=== PATIENT | female | born 1985 | race Caucasian/White ===

== ENCOUNTER 2019-09-30 13:02 | Emergency (ER) | payer OTHER, SELFPAY ==
[2019-09-30 13:16] VITALS: BP 137/85; PULSE 86; RESP 18; TEMP 37; O2SAT 100
--- NOTE | 2019-09-30 13:23 | ED.URI ---
HPI - URI/Sore Throat General Chief Complaint: Upper Respiratory Infection Stated Complaint: ear pain/sore throat Time Seen by Provider: 09/30/19 13:23 Source: patient Mode of arrival: ambulatory Limitations: no limitations History of Present Illness HPI Narrative: Neelam Jones is a 33 yo female with PMH depression, ADD, who comes to express care with sore throat and right ear pain, enlarged tender anterior chain lymph node at base of trachea Related Data Home Medications Medication Instructions Recorded Confirmed alprazolam 0.5 mg PO TID 09/30/19 09/30/19 cetirizine [Zyrtec] 10 mg PO DAILY 09/30/19 09/30/19 [id number] K 1 tablet PO DAILY 09/30/19 09/30/19 [Adults Multivitamin] Allergies Allergy/AdvReac Type Severity Reaction Status Date / Time buspirone Allergy Unknown Unknown Verified 09/30/19 13:32 modafinil Allergy Unknown Unknown Verified 09/30/19 13:32 paroxetine [From Paxil] Allergy Unknown Verified 09/30/19 13:33 Review of Systems Review of Systems: Narrative: CONSTITUTIONAL: Denies fever, chills, sweats. EYES: Denies visual changes, redness, discharge. ENT: Denies rhinorrhea, congestion, has sore throat, right otalgia. Right enlarged tender lymph node CARDIOVASCULAR: Denies chest pain, palpitations, edema. RESPIRATORY: Denies dyspnea, wheezing, cough GASTROINTESTINAL: Denies abdominal pain, nausea, vomiting, diarrhea. GENITOURINARY: Denies dysuria, hematuria, abnormal discharge SKIN: Denies rash or itching. NEUROLOGIC: Denies numbness, or focal weakness. PSYCHIATRIC: Denies anxiety or depression. COUNT INCLUDES THE [facility] Past Medical History Medical History Anxiety Bipolar 1 disorder Panic disorder Weight decrease Family History Family History Mother Family history of multiple sclerosis Asthma Father Hypertension Grandparent Diabetes mellitus Other Family history of malignant neoplasm of thyroid Social History Social History (Updated 09/30/19 @ 13:33 by Colleen Fleming CNP) Smoking packs per day: 1 Smoking cigarettes per day: 20.0 Smoking status: Smoker, status unknown Second hand tobacco smoke exposure: No Alcohol intake: current Comments At time of signature, I agree with nursing past medical, surgical, social and family history. There is no relevant family history pertinent to the presenting complaint. Exam Narrative: Exam Narrative: GENERAL: This is a well-nourished, well-developed patient, in mild distress. HEAD: normocephalic, atraumatic. EYES: Sclera clear/white. Vision is grossly intact. EARS: External ears normal,L auditory canal clear and without drainage, right ear canal erythema with fluid behind TM, right anterior cervical chain lymph node enlargement at right of trachea Hearing grossly intact. NOSE: External nose normal without nasal discharge, nares without redness, no rhinorrhea. THROAT: Mucous membranes moist, posterior pharynx erythema with no exudate NECK: Neck supple,tender on R CARDIOVASCULAR: Regular rate and rhythm without murmurs, gallops, or rubs. RESPIRATORY: Clear to auscultation. Breath sounds equal bilaterally. No wheezes, rales, or rhonchi. GASTROINTESTINAL: Abdomen soft, non-tender, SKIN: warm, intact with no suspicious lesions or rash, good texture and turgor. NEURO: awake, alert, and oriented to person, place and time. There were no obvious focal neurologic abnormalities. Steady gait EXTREMITIES: Normal range of motion. BACK: Nontender without deformity Course Course Emergency Course: Strep negative Started on amoxicillin, Naprosyn, use heat or ice to neck Vital Signs Vital signs: Vital Signs Temperature 98.6 F 09/30/19 13:16 Pulse Rate 86 09/30/19 13:16 Respiratory Rate 18 09/30/19 13:16 Blood Pressure 137/85 09/30/19 13:16 Pulse Oximetry 100 09/30/19 13:16 Temperature 98.6 F
== END 2019-09-30 13:45 | disposition home or self-care (01) ==
PROVIDERS: Emergency Provider Nurse Practitioner; PCP Family Medicine
DX: J02.9 Acute pharyngitis, unspecified (principal); L04.0 Acute lymphadenitis of face, head and neck; F98.8 Other specified behavioral and emotional disorders with onset usually occurring in childhood and adolescence; F41.9 Anxiety disorder, unspecified; F31.9 Bipolar disorder, unspecified
CPT/HCPCS: 87081; 87880; 99213; G0463

== ENCOUNTER 2023-11-30 12:52 | Outpatient (CLI) | payer BC, SELFPAY | END 2023-11-30 12:53 | disposition home or self-care (01) | LOC: ANHAUDASC 12:53 | PROVIDERS: PCP Family Medicine; Visit Provider Otolaryngology | DX: H90.6 Mixed conductive and sensorineural hearing loss, bilateral (principal); H69.90 Unspecified Eustachian tube disorder, unspecified ear; J30.2 Other seasonal allergic rhinitis | CPT/HCPCS: 92557; 92567 ==

== ENCOUNTER 2024-03-21 16:43 | Emergency (ER) | payer BC, SELFPAY ==
--- NOTE | ~2024-03-21 | CT_ITS ---
CLINICAL INDICATION: Right flank pain COMPARISON: 04/21/2017. TECHNIQUE: Multiple contiguous axial images of the abdomen and pelvis were performed without the admi nistration of intravenous contrast The dose-length product (DLP) was 677.12 mGy-cm. Automated exposure control and iterative reconstruction technique were employed. FINDINGS/OBSERVATIONS: Visualized lower thorax: The bilateral lung bases are clear. The heart is of normal size, without pericardial effusion. Small hiatal hernia is present. Liver: The liver is enlarged measuring 20 cm longitudinal dimension. Gallbladder and biliary system: The gallbladder is surgically absent. Pancreas: Limited evaluation of the pancreas secondary to the lack of intravenous contrast. Spleen: The spleen demonstrates homogeneous attenuation and is not enlarged measuring 8.7 cm in longitudinal dimension. Kidneys: Trace right-sided hydroureteronephrosis extending to the right ureterovesicular junction where a 6 mm stone is identified. The left kidney, collecting system and ureter are unremarkable. Adrenal glands: Unremarkable. Gastrointestinal tract: Trace fecal stasis. Appendix: The air-filled appendix is of normal caliber (axial series, image 111) Vasculature: Unremarkable. Lymph nodes: No pathologically enlarged or morphologically suspicious lymph nodes within the retroperitoneum or at the root of the mesentery. Pelvic structures: The bladder is decompressed and otherwise unremarkable. The uterus is anteverted and anteflexed, and otherwise unremarkable. Body wall and musculoskeletal: Small fat-containing umbilical hernia. No significant degenerative disease within the lower thoracic or lumbosacral spine. IMPRESSION: Trace right-sided hydroureteronephrosis secondary to a 6.8 mm calculus at the right ureterovesicular junction Reviewed, dictated and finalized at location A. [employer] IMPRESSION: Trace right-sided hydroureteronephrosis secondary to a 6.8 mm calculus at the r ight ureterovesicular junction
[2024-03-21 16:47] VITALS: BP 166/103; PULSE 98; RESP 16; TEMP 36.5; O2SAT 100
[2024-03-21 17:54] LABS: Alanine Aminotransferase 23 U/L (6-35); Albumin Level 4.7 g/dL (3.5-5.1); Alkaline Phosphatase 90 U/L (38-126); Anion Gap 9 mmol/L (4-12); Aspartate Amino Transferase 24 U/L (14-36); Bilirubin,Total 0.6 mg/dL (0.2-1.3); Blood Urea Nitrogen 14 mg/dL (7-17); Calcium 9.2 mg/dL (8.4-10.2); Carbon Dioxide 23 mmol/L (22-30); Chloride 106 mmol/L (98-107); Estimated CRCL calculation 87 ml/min; Estimated Glomerular Filt Rate > 60; Glucose 96 mg/dL (65-110); Potassium 3.7 mmol/L (3.4-5.0); Sodium 138 mmol/L (137-145)
[2024-03-21 17:59] LABS: Basophils Absolute Auto 0.1 K/mm3 (0.0-0.1); Basophils Percent Auto 0.8 % (0.2-1.2); Eosinophils Absolute Auto 0.3 K/mm3 (0-0.3); Eosinophils Percent Auto 2.6 % (0-4.4); Hematocrit 42.2 % (37.0-47.0); Hemoglobin 14.3 g/dL (12.0-15.0); Immature Granulocyte Absolute 0.04 K/mm3 (0.00-0.031); Immature Granulocyte Percent A 0.4 % (0-0.5); Lymphocytes Absolute Auto 4.17 K/mm3 (0.9-3.2); Mean Corpuscular HGB Conc 33.9 g/dl (32-36); Mean Corpuscular Hemoglobin 32.4 pg (26-34); Mean Corpuscular Volume 95.5 fl (80-100); Mean Platelet Volume 9.1 fl (7.4-10.4); Monocytes Absolute Auto 0.5 K/mm3 (0.1-0.6); Monocytes Percent Auto 4.4 % (2.6-8.5); Neutrophils Absolute Auto 5.9 K/mm3 (1.3-6.7); Neutrophils Percent Auto 53.8 % (45.5-73.1); Platelet Count Result 329 k/mm3 (150-375); Red Blood Count 4.42 M/mm3 (4.2-5.4); Red Cell Distribution Width 12.7 % (11.5-14.5)
[2024-03-21 18:04] LABS: BEDSIDEPREGUCG Negative (Negative)
[2024-03-21 18:08] LABS: Hypochromasia 1+; Platelet Estimate Adequate (Adequate); Schistocytes None Seen
[2024-03-21 18:10] LABS: Add Urine Microscopic? YES; Appearance Urine Clear (Clear); Bacteria Urine Rare /hpf; Bilirubin Urine Negative (Negative); Blood Urine Negative (Negative); Color Urine Yellow (Yellow); Glucose Urine UA Negative (Negative); Ketones Urine 1+ mg/dL (Negative); Leukocyte Esterase Ur Trace LEU/UL (Negative); Need Manual Microscopic Reviewed; Nitrate Urine Negative (Negative); Non Pathogenic Casts 0-2; Protein Urine Negative (Negative); Specific Grav Ur 1.021 (1.001-1.035); Squamous Epithelial Cell Urine Few /hpf (Few); WBC Urine 0-5 /hpf (0-3)
--- NOTE | 2024-03-21 18:42 | ED.GENADULT ---
HPI - General Adult General Chief complaint: Urogenital-Female Stated complaint: UTi symptoms after antibiotic Time Seen by Provider: 03/21/24 16:55 History of Present Illness HPI narrative: 38-year-old female presenting to the emergency department for evaluation for right flank pain. Patient states she was recently diagnosed with a urinary tract infection and was treated with Macrobid patient states that her symptoms have never fully resolved. Patient denies any prior history of kidney stone. Related Data Home Medications Medication Instructions Recorded Confirmed alprazolam 0.5 mg tablet 0.5 mg PO TID 09/30/19 11/16/23 multivit with minerals-iron 18 1 tablet PO DAILY 09/30/19 11/16/23 mg-folic ac 400 mcg-vit K 25 mcg tablet (Adults Multivitamin) methylphenidate HCl 10 mg tablet 10 mg PO DAILY 09/08/23 11/16/23 (Ritalin) loratadine 10 mg tablet (Allergy 10 mg PO DAILY 11/16/23 11/16/23 Relief (loratadine)) Allergies Allergy/AdvReac Type Severity Reaction Status Date / Time buspirone AdvReac Intermediate Agitated Verified 03/21/24 16:44 modafinil AdvReac Intermediate Unknown Verified 03/21/24 16:44 paroxetine [From Paxil] AdvReac Intermediate Unknown Verified 03/21/24 16:44 Review of Systems Review of Systems: All systems reviewed & are unremarkable except as noted in HPI and below PMFSH Past Medical History Medical History Anxiety Bipolar 1 disorder BMI 33.0-33.9,adult BMI 34.0-34.9,adult Cerumen impaction Otitis media Panic disorder Primary narcolepsy without cataplexy Sleep paralysis Weight decrease Family History Family History Mother Family history of multiple sclerosis Asthma Acute myocardial infarction Father Hypertension Grandparent Diabetes mellitus Sibling Thyroid activity decreased Other Family history of malignant neoplasm of thyroid Social History Social History Smoking packs per day: 1 Smoking cigarettes per day: 20.0 Smoking status: Current every day smoker Tobacco type: cigarettes Second hand tobacco smoke exposure: No Alcohol intake: current Substance use: never Substance use type: does not use Do You Feel Safe in your Home?: Yes Lack of Transportation: No Lack of Food: Never True Current Housing: I Have Housing Concerned About Future Housing: No Difficulty Paying Gas/Electric Bills: No Difficulty Paying for Meds: No Currently Unemployed: No Education: High School Diploma/GED Difficulty w/ Childcare or Family Care: No Living arrangements: with family Occupation/Education: occupation 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 HEAD: normocephalic, atraumatic. EYES: PERRLA/EOMI, conjunctivae clear. NOSE: Normal no drainage EARS:TMS clear with good light reflex. THROAT: Pharynx clear, no exudate. NECK: Supple. No adenopathy, no masses. RESPIRATORY: Airway patent, respirations nonlabored. Clear to auscultation bilaterally, no rales, rhonchi, wheezing. CARDIOVASCULAR: Regular rate and rhythm without murmurs rubs or gallops. ABDOMINAL: Right CVA tenderness to palpation MUSCULOSKELETAL: Moves all extremities. Strength/ROM intact, No edema, No calf tenderness. NEURO: Alert. Cranial nerves II through XII intact. Good gait. Good coordination SKIN: Warm, dry. Normal Color Course Vital Signs Vital signs: Vital Signs Temperature 97.7 F 03/21/24 16:47 Pulse Rate 98 03/21/24 16:47 Respiratory Rate 16 03/21/24 16:47 Blood Pressure 166/103 H 03/21/24 16:47 Pulse Oximetry 100 03/21/24 16:47 Oxygen Delivery Room Air 03/21/24 16:47 Temperature 97.7 F 03/21/24 16:47 Pulse Rate 98 03/21/24 16:47 Respiratory Rate 16 03/21/24 16:47 Blood Pressure 166/103 H 03/21/24 16:47 Pulse Oximetry 100 03/21/24 16:47 Oxygen Delivery Room Air 03/21/24 16:47 Medical Decision Making MDM Narrative Medical decision making narrative: 30-year-old female presents emergency department for evaluation for right flank pain. Patient is afebrile but does have a leukocytosis of 11.0 and hemoglobin of 14.3. Patient has no acute abnormalities on her CMP and has normal kidney function. UA was negative infection but was positive for leukocyte esterase and red blood cells. CT scan was ordered due to the patient complaining of flank pain and having hematuria. CT scan does show a 6.8 mm stone at the right UVJ. Patient was updated the results of workup and plan for treatment for home. Vital Signs Vital Signs: Vital Signs Temperature 97.7 F 03/21/24 16:47 Pulse Rate 98 03/21/24 16:47 Respiratory Rate 16 03/21/24 16:47 Blood Pressure 166/103 H 03/21/24 16:47 Pulse Oximetry 100 03/21/24 16:47 Oxygen Delivery Room Air 03/21/24 16:47 Temperature 97.7 F 03/21/24 16:47 Pulse Rate 98 03/21/24 16:47 Respiratory Rate 16 03/21/24 16:47 Blood Pressure 166/103 H 03/21/24 16:47 Pulse Oximetry 100 03/21/24 16:47 Oxygen Delivery Room Air 03/21/24 16:47 Lab Data Lab results reviewed: Yes I reviewed the patient's lab results. 03/21/24 17:26 03/21/24 17:26 Labs: Lab Results 03/21/24 03/21/24 Range/Units 17:26 18:02 WBC 11.0 H (4.5-10.0) K/mm3 RBC 4.42 (4.2-5.4) M/mm3 Hgb 14.3 (12.0-15.0) g/dL Hct 42.2 (37.0-47.0) % MCV 95.5 (80-100) fl MCH 32.4 (26-34) pg MCHC 33.9 (32-36) g/dl RDW 12.7 (11.5-14.5) % Plt Count 329 (150-375) k/mm3 MPV 9.1 (7.4-10.4) fl Immature Gran % (Auto) 0.4 (0-0.5) % Neut % (Auto) 53.8 (45.5-73.1) % Lymph % (Auto) 38.0 (18.3-44.2) % [place] % (Auto) 4.4 (2.6-8.5) % Eos % (Auto) 2.6 (0-4.4) % Baso % (Auto) 0.8 (0.2-1.2) % Lymph # (Auto) 4.17 H (0.9-3.2) K/mm3 [place] # (Auto) 0.5 (0.1-0.6) K/mm3 Eos # (Auto) 0.3 (0-0.3) K/mm3 Baso # (Auto) 0.1 (0.0-0.1) K/mm3 Abs Immat Gran (auto) 0.04 H (0.00-0.031) K/mm3 Absolute Neuts (auto) 5.9 (1.3-6.7) K/mm3 Absolute Nucleated RBC 0.000 (0.0-0.012) K/mm3 Nucleated RBC % 0.0 (0.0-0.2) % Platelet Estimate Adequate (Adequate) Hypochromasia 1+ Schistocytes None seen Sodium 138 (137-145) mmol/L Potassium 3.7 (3.4-5.0) mmol/L Chloride 106 (98-107) mmol/L Carbon Dioxide 23 (22-30) mmol/L Anion Gap 9 (4-12) mmol/L BUN 14 (7-17) mg/dL Creatinine 0.80 (0.7-1.0) mg/dL Estim Creat Clear Calc 87 ml/min Estimated GFR > 60 (59 - ) Glucose 96 (65-110) mg/dL Calcium 9.2 (8.4-10.2) mg/dL Total Bilirubin 0.6 (0.2-1.3) mg/dL AST 24 (14-36) U/L ALT 23 (6-35) U/L Alkaline Phosphatase 90 (38-126) U/L Total Protein 8.0 (6.3-8.2) g/dL Albumin 4.7 (3.5-5.1) g/dL Urine Color Yellow (Yellow) Urine Appearance Clear (Clear) Urine pH 5.0 (5.0-9.0) Ur Specific [place] 1.021 (1.001-1.035) Urine Protein Negative (Negative) mg/dL Urine Glucose (UA) Negative (Negative) mg/dL Urine Ketones 1+ H (Negative) mg/dL Ur Blood (Man) Negative (Negative) Urine Nitrate Negative (Negative) Urine Bilirubin Negative (Negative) Urine Urobilinogen 1.0 (<2.0) mg/dL Add Ur Microanalysis Reviewed Leukocyte Esterase Rfl Trace H (Negative) DIA/UL Urine RBC 11-20 H (0-2) /hpf Urine WBC 0-5 (0-3) /hpf Ur Squamous Epith Cells Few (Few) /hpf Urine Bacteria Rare /hpf Urine Casts 0-2 POC Urine HCG, Qual Negative (Negative) Imaging Data Radiologist's impression: Impressions Abdomen/Pelvis CT 03/21/24 18:23 IMPRESSION: Trace right-sided hydroureteronephrosis secondary to a 6.8 mm calculus at the right ureterovesicular junction Discharge Plan Discharge Clinical Impression: Calculi, ureter Patient Disposition: Home, Self-Care Condition: Stable Instructions: Antibiotic Form, Kidney Stones (ED), How to Strain Your Urine (ED) Additional Instructions: Ibuprofen for pain control. Albert as needed for additional pain control. Flomax as directed to help you pass the stone. Zofran as needed for nausea and vomiting. Have close follow-up with Urology. Strain urine as instructed. If you have any worsening symptoms then please call or return to the emergency department. Prescriptions: New tamsulosin [Flomax] 0.4 mg capsule 0.4 mg PO DAILY Qty: 14 0RF hydrocodone-acetaminophen 5-325 mg tablet 1 tablet PO Q12H PRN (Reason: pain) Qty: 14 0RF ondansetron 4 mg tablet,disintegrating 4 mg PO Q8H PRN (Reason: nausea and vomiting) Qty: 14 0RF No Action alprazolam 0.5 mg Tablet 0.5 mg PO TID Adults Multivitamin 18 mg iron-400 mcg-25 mcg Tablet 1 tablet PO DAILY methylphenidate HCl [Ritalin] 10 mg tablet 10 mg PO DAILY loratadine [Allergy Relief (loratadine)] 10 mg tablet 10 mg PO DAILY amoxicillin-pot clavulanate [Augmentin] 500-125 mg tablet 1 tablet PO Q12H Qty: 20 1RF Rx Instructions: take 1 tablet b.i.d. azelastine 137 mcg (0.1 %) spray,non-aerosol 137 mcg intranasal . q.h.s. Qty: 30 4RF Rx Instructions: administer into each nostril 1 or 2 sprays q.h.s. fluconazole 150 mg tablet 150 mg PO ONCE Qty: 2 0RF Rx Instructions: Take 1 tablet by mouth once. If symptoms persist past 72 hrs, take 1 additional tablet Follow-up/Referrals: Sav Rangel MD [Physician] - Vaibhav Myers MD [Primary Care Provider] -
[2024-03-21] MEDS: KETOROLAC 30 MG/ML VIAL (*BKC) IM (18:56)
[2024-03-21] MEDS: TAMSULOSIN HCL 0.4 MG CAPSULE PO (18:57)
== END 2024-03-21 19:09 | disposition home or self-care (01) ==
PROVIDERS: Emergency Provider Emergency Medicine; PCP Family Medicine
DX: N13.2 Hydronephrosis with renal and ureteral calculous obstruction (principal); F41.9 Anxiety disorder, unspecified; F31.9 Bipolar disorder, unspecified; G47.419 Narcolepsy without cataplexy; F17.210 Nicotine dependence, cigarettes, uncomplicated
CPT/HCPCS: 36415; 74176; 80053; 81001; 81025; 85025; 96372; 99284; A9270; J1885

== ENCOUNTER 2024-04-09 18:38 | Observation (INO) | payer BC, SELFPAY ==
--- NOTE | ~2024-04-09 | CT_ITS ---
EXAMINATION: CT abdomen pelvis wo con DATE: 04/09/2024 21:40 INDICATION: Continued flank pain. Recent 6.8 mm kidney stone TECHNIQUE: Computed tomography (CT) of the abdomen and pelvis was performed without intravenous contr ast. Automated exposure control and iterative reconstruction technique were employed. Exam dose: 389 .54 mGy-cm total exam DLP. COMPARISON: 03/21/2024 CT abdomen pelvis FINDINGS: There is an approximately 2.2 x 5.7 mm calcification in the region of the distal right uret er ureter. There is also a pinpoint calculus in the region of the right ureterovesical junction. No other calcification in the urinary tracts. No hydroureteronephrosis is noted on either side. No renal calcifications are identified. No hydroureteronephrosis is evident. The urinary bladder is otherwise unremarkable. Uterus and adnexal areas are unremarkable. Status post cholecystectomy. The liver, spleen, pancreas, bile ducts and pancreatic duct are unremark able. Normal morphology of the right adrenal gland. 1.7 x 2 cm left adrenal nodule with attenuation of -12 Hounsfield units, likely a left adrenal adenoma. Normal caliber of the abdominal aorta. No intraperitoneal or retroperitoneal or pelvic mass lesion or adenopathy or ascites. No appendicitis. No bowel obstruction or intraperitoneal free air. Small fat-containing umbilical hernia. Included skeletal structures are unremarkable. IMPRESSION: 2.2 x 5.7 mm punctate calculi are noted in the region of the distal ureter and ureterove sical junction, respectively, but with no evidence of hydronephrosis. If further evaluation is required, consider repeat CT examination with IV contrast material more defi nitive localization of the right pelvic calcifications with respect of the ureter Reviewed, dictated and finalized at [facility]. Reviewed, dictated and finalized at [facility]. ASSOCIATE IMPRESSION: 2.2 x 5.7 mm punctate calculi are noted in the region of the dista l ureter and ureterovesical junction, respectively, but with no evidence of hyd ronephrosis. If further evaluation is required, consider repeat CT examination with IV contr ast material more definitive localization of the right pelvic calcifications wi th respect of the ureter
--- NOTE | ~2024-04-09 | XR_ITS ---
EXAMINATION: XR retrograde pyelo w/stent RT DATE: 04/10/2024 12:25 INDICATION: Nephrolithiasis. TECHNIQUE: 51 fluoroscopic images of the abdomen and pelvis were obtained during procedure performed by Dr. Rangel. Radiologist was not present for the imaging or procedure. The amount of fluoroscopy t arnulfo used during this procedure was 0.3 minutes. COMPARISON: CT dated 04/09/2024 FINDINGS: Images demonstrate retrograde contrast injection into the right ureter and right renal collecting sys tem. Lucent filling defect in the distal ureter which changes in size and morphology during the cours e of the injection consistent with with injected gas bubbles. No other filling defects or mucosal irr egularities identified. No hydronephrosis. Cholecystectomy clips in the right upper quadrant. Final i mages demonstrate placement of a right internal ureteral stent with loops formed in the lower pole ca lyx of the right kidney and in the bladder. IMPRESSION: 1. Unremarkable right retrograde pyelogram and placement of a right internal ureteral stent which is in expected position. See procedure note for further detail. Reviewed, dictated and finalized at [facility]. BUILDER IMPRESSION: 1. Unremarkable right retrograde pyelogram and placement of a right internal ur eteral stent which is in expected position. See procedure note for further deta il.
--- NOTE | ~2024-04-09 | US_ITS ---
EXAMINATION: US renal BI DATE: 04/10/2024 16:52 INDICATION: Kidney stone TECHNIQUE: Multiple ultrasound grayscale images of the kidneys were obtained. COMPARISON: None. FINDINGS: The right kidney measures 12.3 x 4.8 x 4.9 cm. The left kidney measures 11.9 x 5.2 x 3.6 cm. The kidn eys demonstrate normal echogenicity. There is no hydronephrosis in either kidney. No stones identifi ed. The bladder is normal. IMPRESSION: 1. Normal kidneys without hydronephrosis. Reviewed, dictated and finalized at [facility]. L BILLING COORDINATOR
[2024-04-09 18:55] VITALS: BP 139/90; PULSE 100; RESP 17; TEMP 36.7; O2SAT 99
[2024-04-09 19:39] LABS: BEDSIDEPREGUCG Negative (Negative)
[2024-04-09 19:46] LABS: Add Urine Microscopic? YES; Appearance Urine Cloudy (Clear); Bacteria Urine None Seen /hpf; Bilirubin Urine Negative (Negative); Blood Urine 3+ (Negative); Color Urine Dark Yellow (Yellow); Glucose Urine UA Negative (Negative); Ketones Urine Trace mg/dL (Negative); Leukocyte Esterase Ur 1+ LEU/UL (Negative); Nitrate Urine Negative (Negative); Non Pathogenic Casts 0-2; Protein Urine 1+ mg/dL (Negative); RBC Urine >100 /hpf (0-2); Specific Grav Ur 1.024 (1.001-1.035); Squamous Epithelial Cell Urine None Seen /hpf (Few); pH Urine 5.5 (5.0-9.0)
[2024-04-09 22:17] LABS: Basophils Absolute Auto 0.1 K/mm3 (0.0-0.1); Basophils Percent Auto 0.8 % (0.2-1.2); Eosinophils Absolute Auto 0.4 K/mm3 (0-0.3); Eosinophils Percent Auto 3.9 % (0-4.4); Hematocrit 38.7 % (37.0-47.0); Hemoglobin 12.7 g/dL (12.0-15.0); Immature Granulocyte Absolute 0.02 K/mm3 (0.00-0.031); Immature Granulocyte Percent A 0.2 % (0-0.5); Lymphocytes Absolute Auto 4.84 K/mm3 (0.9-3.2); Lymphocytes Percent Auto 45.5 % (18.3-44.2); Mean Corpuscular HGB Conc 32.8 g/dl (32-36); Mean Corpuscular Hemoglobin 31.8 pg (26-34); Mean Platelet Volume 8.9 fl (7.4-10.4); Monocytes Absolute Auto 0.7 K/mm3 (0.1-0.6); Monocytes Percent Auto 6.6 % (2.6-8.5); Neutrophils Absolute Auto 4.6 K/mm3 (1.3-6.7); Platelet Count Result 288 k/mm3 (150-375); Red Blood Count 3.99 M/mm3 (4.2-5.4); White Blood Count 10.6 K/mm3 (4.5-10.0)
[2024-04-09 22:27] LABS: Anion Gap 4 mmol/L (4-12); Blood Urea Nitrogen 20 mg/dL (7-17); Calcium 8.9 mg/dL (8.4-10.2); Carbon Dioxide 26 mmol/L (22-30); Chloride 108 mmol/L (98-107); Estimated CRCL calculation 87 ml/min; Estimated Glomerular Filt Rate > 60; Glucose 91 mg/dL (65-110); Potassium 4.1 mmol/L (3.4-5.0); Sodium 138 mmol/L (137-145)
--- NOTE | 2024-04-09 22:33 | ED_ITS ---
HPI - Female Genitourinary General Chief complaint: Urogenital-Female Stated complaint: right side flank pain/recent dx of kidney stone Time Seen by Provider: 04/09/24 21:59 Source: patient and old records reviewed Mode of arrival: ambulatory Limitations: no limitations History of Present Illness HPI Narrative: Patient is a 38-year-old female who presents the ED with report of right flank pain. Patient reports she has been dealing with this pain since 03/04. Pain does intermittently radiate around to right lower abdomen. She was seen in the ED here on 03/21 and diagnosed with a 6.8 mm distal right-sided kidney stone. Pain was improved at that time and patient was discharged with outpatient urology follow-up. She has an appointment on 04/21. She states over the last couple of days, the pain has become worse. She has been taking pain medicine at home without improvement. Reports intermittent nausea and oliguria over the last few days. Denies vomiting. Denies fevers. Denies hematuria. Related Data Home Medications Medication Instructions Recorded Confirmed alprazolam 0.5 mg tablet 0.5 mg PO TID 09/30/19 11/16/23 multivit with minerals-iron 18 1 tablet PO DAILY 09/30/19 11/16/23 mg-folic ac 400 mcg-vit K 25 mcg tablet (Adults Multivitamin) methylphenidate HCl 10 mg tablet 10 mg PO DAILY 09/08/23 11/16/23 (Ritalin) loratadine 10 mg tablet (Allergy 10 mg PO DAILY 11/16/23 11/16/23 Relief (loratadine)) Allergies Allergy/AdvReac Type Severity Reaction Status Date / Time buspirone AdvReac Intermediate Agitated Verified 03/21/24 16:44 modafinil AdvReac Intermediate Unknown Verified 03/21/24 16:44 paroxetine [From Paxil] AdvReac Intermediate Unknown Verified 03/21/24 16:44 Review of Systems Review of Systems: All systems reviewed & are unremarkable except as noted in HPI. All systems reviewed & are unremarkable except as noted in HPI and below PMFSH Past Medical History Medical History Anxiety Bipolar 1 disorder BMI 33.0-33.9,adult BMI 34.0-34.9,adult Cerumen impaction Otitis media Panic disorder Primary narcolepsy without cataplexy Sleep paralysis Weight decrease Family History Family History Mother Family history of multiple sclerosis Asthma Acute myocardial infarction Father Hypertension Grandparent Diabetes mellitus Sibling Thyroid activity decreased Other Family history of malignant neoplasm of thyroid Social History Social History Smoking packs per day: 1 Smoking cigarettes per day: 20.0 Smoking status: Current every day smoker Tobacco type: cigarettes Second hand tobacco smoke exposure: No Alcohol intake: current Substance use: never Substance use type: does not use Do You Feel Safe in your Home?: Yes Lack of Transportation: No Lack of Food: Never True Current Housing: I Have Housing Concerned About Future Housing: No Difficulty Paying Gas/Electric Bills: No Difficulty Paying for Meds: No Currently Unemployed: No Education: High School Diploma/GED Difficulty w/ Childcare or Family Care: No Living arrangements: with family Occupation/Education: occupation 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 HEAD: Normocephalic, atraumatic. RESPIRATORY: Airway patent, respirations nonlabored. Clear to auscultation bilaterally, no rales, rhonchi, wheezing. CARDIOVASCULAR: Regular rate and rhythm without murmurs, rubs, or gallops. ABDOMINAL: Soft, mild tenderness to palpation right mid to lower abdomen, nondistended. Normoactive BS. Positive CVA tenderness on the right. MUSCULOSKELETAL: Moves all extremities. No gross deformities. SKIN: Warm, dry, normal color. NEURO: A&O X3. Speech clear. PSYCHIATRIC: Appropriate mood and affect. Normal interaction. Course Vital Signs Vital signs: Vital Signs Temperature 98.1 F 04/09/24 18:55 Pulse Rate 100 04/09/24 18:55 Respiratory Rate 17 04/09/24 18:55 Blood Pressure 139/90 04/09/24 18:55 Pulse Oximetry 99 04/09/24 18:55 Oxygen Delivery Room Air 04/09/24 18:55 Temperature 98.1 F 04/09/24 18:55 Pulse Rate 100 04/09/24 18:55 Respiratory Rate 17 04/09/24 18:55 Blood Pressure 139/90 04/09/24 18:55 Pulse Oximetry 99 04/09/24 18:55 Oxygen Delivery Room Air 04/09/24 18:55 MDM - Female Genitourinary MDM Narrative Medical decision making narrative: Patient presented to ED with persistent right-sided flank pain, ongoing for the past 1+ month. Seen here on 03/21 and diagnosed with right-sided distal ureteral stone. Does not have urology follow-up for the next 2 weeks. Vital signs are stable here. Patient is afebrile. Laboratory studies showing white blood cell count of 10.6. BMP is unremarkable. Stable kidney function. Urine with trace ketones, lots of blood, 11-20 WBC. No urine bacteria seen. Sent for culture. test is negative. CT scan of abdomen/pelvis was obtained and showing two smaller stones in distal ureter and UVJ, no hydroureteronephrosis. Previous CT imaging from 03/21 showed a 6.8mm stone. Patient given morphine and Zofran for pain. She did report feeling very anxious after receiving the morphine. She has never had morphine before. Denies any symptoms of allergic reaction, denies itching, rash, shortness of breath. Does have hx of anxiety and panic disorder. She was given a small dose of Ativan with improvement. She is still reporting persistent pain throughout her flank region. Given that pain has been ongoing for 1+ months without passage of stones with worsening pain, feel patient would be a candidate for urologic pro cedure. Discussed case with Dr. Dickerson, urology, agreed with plan for admission, likely intervention for stone tomorrow. Keep NPO after midnight. Discussed case with Dr. Beard, hospitalist, accepted patient for admission. Patient in agreement plan and need for admission. Medical Records Attestation: I reviewed the patient's medical records. Lab Data Attestation: I reviewed the patient's lab results. 04/09/24 22:10 04/09/24 22:10 Labs: Lab Results 04/09/24 04/09/24 04/09/24 Range/Units 19:02 19:38 22:10 WBC 10.6 H (4.5-10.0) K/mm3 RBC 3.99 L (4.2-5.4) M/mm3 Hgb 12.7 (12.0-15.0) g/dL Hct 38.7 (37.0-47.0) % MCV 97.0 (80-100) fl MCH 31.8 (26-34) pg MCHC 32.8 (32-36) g/dl RDW 13.0 (11.5-14.5) % Plt Count 288 (150-375) k/mm3 MPV 8.9 (7.4-10.4) fl Immature Gran % (Auto) 0.2 (0-0.5) % Neut % (Auto) 43.0 L (45.5-73.1) % Lymph % (Auto) 45.5 H (18.3-44.2) % [place] % (Auto) 6.6 (2.6-8.5) % Eos % (Auto) 3.9 (0-4.4) % Baso % (Auto) 0.8 (0.2-1.2) % Lymph # (Auto) 4.84 H (0.9-3.2) K/mm3 [place] # (Auto) 0.7 H (0.1-0.6) K/mm3 Eos # (Auto) 0.4 H (0-0.3) K/mm3 Baso # (Auto) 0.1 (0.0-0.1) K/mm3 Abs Immat Gran (auto) 0.02 (0.00-0.031) K/mm3 Absolute Neuts (auto) 4.6 (1.3-6.7) K/mm3 Absolute Nucleated RBC 0.000 (0.0-0.012) K/mm3 Nucleated RBC % 0.0 (0.0-0.2) % Sodium 138 (137-145) mmol/L Potassium 4.1 (3.4-5.0) mmol/L Chloride 108 H (98-107) mmol/L Carbon Dioxide 26 (22-30) mmol/L Anion Gap 4 (4-12) mmol/L BUN 20 H (7-17) mg/dL Creatinine 0.80 (0.7-1.0) mg/dL Estim Creat Clear Calc 87 ml/min Estimated GFR > 60 (59 - ) Glucose 91 (65-110) mg/dL Calcium 8.9 (8.4-10.2) mg/dL Urine Color Dark yellow (Yellow) Urine Appearance Cloudy H (Clear) Urine pH 5.5 (5.0-9.0) Ur Specific [place] 1.024 (1.001-1.035) Urine Protein 1+ H (Negative) mg/dL Urine Glucose (UA) Negative (Negative) mg/dL Urine Ketones Trace H (Negative) mg/dL Ur Blood (Man) 3+ H (Negative) Urine Nitrate Negative (Negative) Urine Bilirubin Negative (Negative) Urine Urobilinogen 1.0 (<2.0) mg/dL Leukocyte Esterase Rfl 1+ H (Negative) DIA/UL Urine RBC >100 H (0-2) /hpf Urine WBC 11-20 H (0-3) /hpf Ur Squamous Epith Cells None seen (Few) /hpf Urine Bacteria None seen /hpf Urine Casts 0-2 POC Urine HCG, Qual Negative (Negative) Imaging Data Attestation: I personally reviewed and interpreted this imaging study as follows: Radiologist's impression: ITS Impressions Abdomen/Pelvis CT 04/09/24 21:44 IMPRESSION: 2.2 x 5.7 mm punctate calculi are noted in the region of the distal ureter and ureterovesical junction, respectively, but with no evidence of hydronephrosis. If further evaluation is required, consider repeat CT examination with IV contrast material more definitive localization of the right pelvic calcifications with respect of the ureter Discharge Plan Discharge Clinical Impression: Calculus of distal right ureter, Acute right flank pain Patient Disposition: Still a Patient Condition: Stable Prescriptions: No Action alprazolam 0.5 mg Tablet 0.5 mg PO TID Adults Multivitamin 18 mg iron-400 mcg-25 mcg Tablet 1 tablet PO DAILY methylphenidate HCl [Ritalin] 10 mg tablet 10 mg PO DAILY loratadine [Allergy Relief (loratadine)] 10 mg tablet 10 mg PO DAILY amoxicillin-pot clavulanate [Augmentin] 500-125 mg tablet 1 tablet PO Q12H Qty: 20 1RF Rx Instructions: take 1 tablet b.i.d. azelastine 137 mcg (0.1 %) spray,non-aerosol 137 mcg intranasal . q.h.s. Qty: 30 4RF Rx Instructions: administer into each nostril 1 or 2 sprays q.h.s. tamsulosin [Flomax] 0.4 mg capsule 0.4 mg PO DAILY Qty: 14 0RF hydrocodone-acetaminophen 5-325 mg tablet 1 tablet PO Q12H PRN (Reason: pain) Qty: 14 0RF ondansetron 4 mg tablet,disintegrating 4 mg PO Q8H PRN (Reason: nausea and vomiting) Qty: 14 0RF fluconazole 150 mg tablet 150 mg PO ONCE Qty: 2 0RF Rx Instructions: Take 1 tablet by mouth once. If symptoms persist past 72 hrs, take 1 additional tablet Follow-up/Referrals: Vaibhav Myers MD [Primary Care Provider] -
[2024-04-09] MEDS: ONDANSETRON INJ 4 MG/2 ML VIAL IV PUSH (22:53)
[2024-04-09] MEDS: MORPHINE SULFATE (*CRX) 4 MG/ML INJ IV PUSH (22:53)
[2024-04-10] VITALS (12 sets, daily range): BP systolic 102–137; BP diastolic 63–91; PULSE 61–102; RESP 12–20; TEMP 35.9–37.1; O2SAT 94–100; BMI 34.3; BMI 34.4
[2024-04-10] MEDS: LORazepam INJ (*CRX) 2 MG/ML VIAL 0.5 MG IV PUSH ×2 (00:11→09:08)
[2024-04-10] MEDS: SODIUM CHLORIDE 0.9% IV 1,000 ML 999 ML IV CONT ×2 (00:49→00:50)
--- NOTE | 2024-04-10 01:26 | ADMGEN ---
This patient, Neelam Jones, was admitted to Medical Room 261-01. Patient/family oriented to hospital policies and general routines including ID bracelet, bed and alarms, visiting hours, pain management, procedures, bathroom and other care routines, personal items, smoking policy, room service/diet, and visiting hours. Information on how to activate the Rapid Response Team has been discussed. Patient/Family are encouraged to report perceived risks to care and to ask questions if they do not understand what they are told or what they should do.
--- NOTE | 2024-04-10 01:35 | PC.NURSE ---
Admission report to RONIT Majano.
[2024-04-10] MEDS: HYDROmorphone HCL INJ (*CRX) 1 MG/ML SYR 0.5 MG IV PUSH ×3 (01:44→10:51)
--- NOTE | 2024-04-10 07:05 | P.HP_ITS ---
H&P: HPI History of Present Illness Date/Time: 04/10/24 07:05 Chief Complaint: Right flank pain Narrative: Patient is a 38-year-old female with history of anxiety, present ED with a chief complaint of right fem pain. Patient has been having intermittent right flank pain since March 04, 2024, it radiating to the right groin. Patient came to ED March 13/2024, patient was found have right-sided kidney stone about 6.8 mL. Patient was discharged and follow-up with urologist. In past few days, patient has worsening flank pain, therefore patient came back to ED for further evaluation and management. Patient also has intermittent nausea, poor appetite, poor urine output. Patient denies chest pain shortness breast fever chills headache, focal weakness.Upon arrival to ED, patient is afebrile 98.1, tac hycardia 100, pulse ox 99 on room air, lab showed leukocytosis 10,600, elevated BUN creatinine ratio 20/0.8 UA showed cloudy urine, hematuria and pyuria Review of Systems Review of Systems: ROS negative except above PMFSH Past Medical History Medical History Anxiety Bipolar 1 disorder BMI 33.0-33.9,adult BMI 34.0-34.9,adult Cerumen impaction Otitis media Panic disorder Primary narcolepsy without cataplexy Sleep paralysis Weight decrease Family History Family History Mother Family history of multiple sclerosis Asthma Acute myocardial infarction Father Hypertension Grandparent Diabetes mellitus Sibling Thyroid activity decreased Other Family history of malignant neoplasm of thyroid Social History Social History Smoking packs per day: 1 Smoking cigarettes per day: 20.0 Years smoked: 22 Smoking pack-years: 22.00 Smoking status: Current every day smoker Second hand tobacco smoke exposure: No Alcohol intake: current Substance use: never Substance use type: does not use Do You Feel Safe in your Home?: Yes Lack of Transportation: No Lack of Food: Never True Current Housing: I Have Housing Concerned About Future Housing: No Difficulty Paying Gas/Electric Bills: No Difficulty Paying for Meds: No Currently Unemployed: No Education: High School Diploma/GED Difficulty w/ Childcare or Family Care: No Living arrangements: with family Occupation/Education: occupation 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 Gender identity (if verbalized by the patient): Female Spiritual care concerns: No Meds Home Medications and Allergies Home Medications Medication Instructions Recorded Confirmed Type alprazolam 0.5 mg tablet 0.5 mg PO TID 09/30/19 04/10/24 History multivit with minerals-iron 18 1 tablet PO DAILY 09/30/19 04/10/24 History mg-folic ac 400 mcg-vit K 25 mcg tablet (Adults Multivitamin) methylphenidate HCl 10 mg tablet 10 mg PO BID 09/08/23 04/10/24 History (Ritalin) loratadine 10 mg tablet (Allergy 10 mg PO DAILY 11/16/23 04/10/24 History Relief (loratadine)) hydrocodone 5 mg-acetaminophen 325 1 tablet PO Q12H PRN pain #14 tabs 03/21/24 04/10/24 Rx mg tablet Allergies Allergy/AdvReac Type Severity Reaction Status Date / Time buspirone AdvReac Intermediate Agitated Verified 03/21/24 16:44 modafinil AdvReac Intermediate Unknown Verified 03/21/24 16:44 paroxetine [From Paxil] AdvReac Intermediate Unknown Verified 03/21/24 16:44 morphine AdvReac Anxiety Verified 04/10/24 01:17 Vital Signs Vital Signs - 24 hr 04/09/24 18:55 04/10/24 01:47 04/10/24 01:55 Temperature 98.1 F 96.6 F L Pulse Rate 100 86 86 Respiratory Rate 17 16 16 Blood Pressure 139/90 131/86 Pulse Oximetry 99 94 94 Oxygen Delivery Room Air Room Air 04/10/24 06:00 Temperature 97.3 F L Pulse Rate 85 Respiratory Rate 20 Blood Pressure 112/63 Pulse Oximetry 96 Oxygen Delivery Exam Narrative: GENERAL: Pleasant, in no acute distress. Well-nourished. - EYES: EOMI. Anicteric. - HENT: Moist mucous membranes. - LUNGS: Clear to auscultation bilateral ly, no wheezing, rhonchi, or rales. - CARDIOVASCULAR: Regular rate and rhyth m. No murmur. No JVD. - ABDOMEN: Soft, right flank pain tender and non-distended. No palpable masses. - EXTREMITIES: No edema. Peripheral puls es 2+. Non-tender. - NEUROLOGIC: No focal neurological defi cits. CN II-XII grossly intact. - PSYCHIATRIC: Awake, Alert and oriented x 3. Appropriate mood and affect. - SKIN: No rashes or lesions. Warm. - LYMPH: No cervical lymphadenopathy. H&P: Results Labs Labs: Short CBC 04/09/24 Range/Units 22:10 WBC 10.6 H (4.5-10.0) K/mm3 Hgb 12.7 (12.0-15.0) g/dL Hct 38.7 (37.0-47.0) % Plt Count 288 (150-375) k/mm3 BMP 04/09/24 22:10 Sodium 138 Potassium 4.1 Chloride 108 H Carbon Dioxide 26 BUN 20 H Creatinine 0.80 Glucose 91 Calcium 8.9 Urine 04/09/24 Range/Units 19:02 Urine Color Dark yellow (Yellow) Urine Appearance Cloudy H (Clear) Urine pH 5.5 (5.0-9.0) Ur Specific [place] 1.024 (1.001-1.035) Urine Protein 1+ H (Negative) mg/dL Urine Glucose (UA) Negative (Negative) mg/dL Assessment and Plan Assessment and plan (1) Acute right flank pain: Code(s): R10.9 - Unspecified abdominal pain Status: Acute (2) Calculus of distal right ureter: Code(s): N20.1 - Calculus of ureter Status: Acute (3) Complicated UTI (urinary tract infection): Code(s): N39.0 - Urinary tract infection, site not specified Status: Acute (4) Dehydration: Code(s): E86.0 - Dehydration Status: Acute Plan Right flank pain Likely resulting from kidney stone and UTI ED physician consulted urologist Keep patient p.o., start normal saline IV Follow-up renal ultrasound Optimize pain management Urologist will perform cystoscope today Complicated UTI UA shows pyuria, hematuria, likely resulting from obstruction or kidney stone Patient also has mild leukocytosis Start ceftriaxone 1 g IV daily Follow-up urine culture Dehydration Patient is a poor intake due to nausea Elevated BUN creatinine ratio above 20 Start normal saline IV Patient may stay more than 2 midnights in the hospital Hospitalist MIPS Advance Care Plan I have confirmed that the patient's Advanced Care Plan is present, code status is documented, or surrogate decision maker is listed in patient medical record.: Yes Medication Reconciliation I have utilized all available resources to obtain, update and review the patients current medications (includes all prescriptions, OTC, herbals, cannabis, and nutritional supplements).: Yes
--- NOTE | 2024-04-10 07:43 | P.CONUR_ITS ---
Assessment and Plan Assessment and plan (1) Calculi, ureter: Code(s): N20.1 - Calculus of ureter Status: Inactive Assessment and Plan: she would like intervention for the stone. I suspect stone is present due to her symptomatology despite the fact she has no hydronephrosis. I reviewed the CT scan myself and see it calcification in the area of the distal ureter but it cannot be confirmed within the ureter given the lack of contrast. In light of her symptomatology we will proceed with intervention. She consents for cystoscopy, right ureteroscopy, stone extraction, stent placement. Holmium laser lithotripsy if required. if all goes well she can be discharged home postoperatively. She does have an appointment in about 10 days in the office. Stent can be removed at this time (2) Abnormal urinalysis: Code(s): R82.90 - Unspecified abnormal findings in urine Status: Acute Assessment and Plan: she has no outward signs of urinary tract infection. The amount of blood in the urine the patient states secondary to her menses. She is not symptomatic for infection. I would not deem her as having a complicated urinary tract infection as documented previously in other provider notes Urology Consult Note HPI Date Seen: 04/10/24 Requesting Physician: Treasure Beard DO Primary Care Provider: Vaibhav Myers MD Consult Narrative Narrative: Neelam Jones is a 38 year old female with no prior history of nephrolithiasis. She 1st started experiencing pain and January. She attributes this to anxiety and menstrual cramps. She visited the emergency room in March and a CT scan was performed. She was diagnosed with a 5-6 mm distal right ureteral stone with minimal hydronephrosis. She was sent home with a trial of conservative stone passage and urologic follow-up. She has not had urologic follow-up yet. She has had intermittent flank pain on almost a daily basis since March. She finally re-presented to the emergency room last night. CT scan was reperformed showing the calcification in the area the distal right ureter without hydronephrosis. Suspicion is that it is the ureteral stone. I reviewed this CT scan and the 1 from March and the findings are similar. Her white count is 10. She has no clinical signs of infection. She is not symptomatic for urinary tract infection. Her urinalysis is abnormal with red and white blood cells, but this is likely secondary to her menstrual period. She has no fevers she has no outward signs of infection. she is interested in the procedure for her stone she has been struggling with it for 6-8 weeks Review of Systems Review of Systems: All systems reviewed & are unremarkable except as noted in HPI and below PMFSH Past Medical History Medical History Anxiety Bipolar 1 disorder BMI 33.0-33.9,adult BMI 34.0-34.9,adult Cerumen impaction Otitis media Panic disorder Primary narcolepsy without cataplexy Sleep paralysis Weight decrease Family History Family History Mother Family history of multiple sclerosis Asthma Acute myocardial infarction Father Hypertension Grandparent Diabetes mellitus Sibling Thyroid activity decreased Other Family history of malignant neoplasm of thyroid Social History Social History Smoking packs per day: 1 Smoking cigarettes per day: 20.0 Years smoked: 22 Smoking pack-years: 22.00 Smoking status: Current every day smoker Second hand tobacco smoke exposure: No Alcohol intake: current Substance use: never Substance use type: does not use Do You Feel Safe in your Home?: Yes Lack of Transportation: No Lack of Food: Never True Current Housing: I Have Housing Concerned About Future Housing: No Difficulty Paying Gas/Electric Bills: No Difficulty Paying for Meds: No Currently Unemployed: No Education: High School Diploma/GED Difficulty w/ Childcare or Family Care: No Living arrangements: with family Occupation/Education: occupation 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 Gender identity (if verbalized by the patient): Female Spiritual care concerns: No Meds Home Medications and Allergies Home Medications Medication Instructions Recorded Confirmed Type alprazolam 0.5 mg tablet 0.5 mg PO TID 09/30/19 04/10/24 History multivit with minerals-iron 18 1 tablet PO DAILY 09/30/19 04/10/24 History mg-folic ac 400 mcg-vit K 25 mcg tablet (Adults Multivitamin) methylphenidate HCl 10 mg tablet 10 mg PO BID 09/08/23 04/10/24 History (Ritalin) loratadine 10 mg tablet (Allergy 10 mg PO DAILY 11/16/23 04/10/24 History Relief (loratadine)) hydrocodone 5 mg-acetaminophen 325 1 tablet PO Q12H PRN pain #14 tabs 03/21/24 04/10/24 Rx mg tablet Allergies Allergy/AdvReac Type Severity Reaction Status Date / Time buspirone AdvReac Intermediate Agitated Verified 03/21/24 16:44 modafinil AdvReac Intermediate Unknown Verified 03/21/24 16:44 paroxetine [From Paxil] AdvReac Intermediate Unknown Verified 03/21/24 16:44 morphine AdvReac Anxiety Verified 04/10/24 01:17 Vital Signs Vital Signs - 24 hr 04/09/24 18:55 04/10/24 01:47 04/10/24 01:55 Temperature 98.1 F 96.6 F L Pulse Rate 100 86 86 Respiratory Rate 17 16 16 Blood Pressure 139/90 131/86 Pulse Oximetry 99 94 94 Oxygen Delivery Room Air Room Air 04/10/24 06:00 Temperature 97.3 F L Pulse Rate 85 Respiratory Rate 20 Blood Pressure 112/63 Pulse Oximetry 96 Oxygen Delivery Exam Const: General: cooperative, healthy appearing, no acute distress, well developed, alert, awake and Physically active; No diaphoretic or ill appearing Nutritional Appearance: average body habitus Orientation/consciousness: patient oriented x3 Limitations: no limitations HENMT: Head: normal to inspection Eyes: General: appearance normal, both eyes and all related structures Neck: Neck: normal visual inspection and trachea midline Chest: Chest palpation & inspection: normal inspection of the chest Resp: Effort & Inspection: normal respiratory effort, audible wheezes and no cough GI: Inspection: normal to inspection Back/Spine/Pelvis: Back: no CVA tenderness Skin: General skin exam: normal color, no rashes or lesions noted, elasticity normal and turgor normal Lesions: no lesions Rashes: no rashes Neuro: General: patient oriented x3, tone normal and moves all extremities Extrem: General: normal to inspection and full ROM Psych: Appearance: grossly normal and well kempt Results Labs 04/09/24 22:10 04/09/24 22:10 Labs: Short CBC 04/09/24 Range/Units 22:10 WBC 10.6 H (4.5-10.0) K/mm3 Hgb 12.7 (12.0-15.0) g/dL Hct 38.7 (37.0-47.0) % Plt Count 288 (150-375) k/mm3 BMP 04/09/24 22:10 Sodium 138 Potassium 4.1 Chloride 108 H Carbon Dioxide 26 BUN 20 H Creatinine 0.80 Glucose 91 Calcium 8.9 Urine 04/09/24 Range/Units 19:02 Urine Color Dark yellow (Yellow) Urine Appearance Cloudy H (Clear) Urine pH 5.5 (5.0-9.0) Ur Specific [place] 1.024 (1.001-1.035) Urine Protein 1+ H (Negative) mg/dL Urine Glucose (UA) Negative (Negative) mg/dL Imaging My impression: CT scan viewed by myself and outlined in history of present illness.
[2024-04-10] MEDS: SODIUM CHLORIDE 0.9% IV 1,000 ML 100 ML IV CONT (07:46)
--- NOTE | 2024-04-10 07:52 | WPDHPUPDATE1 ---
History and Physical Update Update Date/Time: 04/10/24 07:52 History and Physical has been reviewed, including an updated exam of the patient. There are NO changes in the patient's condition. Risks, benefits, and alternatives have been discussed and questions answered. Patient agrees to proceed with procedure.
[2024-04-10] MEDS: LACTATED RINGERS 1,000 ML 30 ML IV CONT (11:05)
--- NOTE | 2024-04-10 11:16 | WPDANESEPPF ---
Anes - Initial Pre Proc Eval Procedure: Operation Date: 04/10/24 12:00 Proposed Procedures p Cystoscopy, Right Ureteroscopy, Possible Right Retrograde Pyelogram, Possible Right Stone Extraction, Possible Right Stent Placement, Possible Holmium Laser - Sav Rangel MD Date/Time: 04/10/24 11:16 Surgeon: Treasure Beard DO Pre Op Diagnosis: R distal ureteral stones Patient Data Age: 38 Gender: F Height: 1.6 m Weight: 88.2 kg Last Vital Signs Temp 36.3 C L 04/10/24 06:00 Pulse 85 04/10/24 06:00 Resp 20 04/10/24 06:00 BP 112/63 04/10/24 06:00 Pulse Ox 96 04/10/24 06:00 O2 Del Method Room Air 04/10/24 07:46 Allergies Allergy/AdvReac Type Severity Reaction Status Date / Time buspirone AdvReac Intermediate Agitated Verified 03/21/24 16:44 modafinil AdvReac Intermediate Unknown Verified 03/21/24 16:44 paroxetine [From Paxil] AdvReac Intermediate Unknown Verified 03/21/24 16:44 morphine AdvReac Anxiety Verified 04/10/24 01:17 Home Medications Medication Instructions Recorded Confirmed Type alprazolam 0.5 mg tablet 0.5 mg PO TID 09/30/19 04/10/24 History multivit with minerals-iron 18 1 tablet PO DAILY 09/30/19 04/10/24 History mg-folic ac 400 mcg-vit K 25 mcg tablet (Adults Multivitamin) methylphenidate HCl 10 mg tablet 10 mg PO BID 09/08/23 04/10/24 History (Ritalin) loratadine 10 mg tablet (Allergy 10 mg PO DAILY 11/16/23 04/10/24 History Relief (loratadine)) hydrocodone 5 mg-acetaminophen 325 1 tablet PO Q12H PRN pain #14 tabs 03/21/24 04/10/24 Rx mg tablet Laboratory Tests 04/09/24 04/09/24 04/09/24 19:02 19:38 22:10 WBC 10.6 H K/mm3 (4.5-10.0) RBC 3.99 L M/mm3 (4.2-5.4) Hgb 12.7 g/dL (12.0-15.0) Hct 38.7 % (37.0-47.0) MCV 97.0 fl (80-100) MCH 31.8 pg (26-34) MCHC 32.8 g/dl (32-36) RDW 13.0 % (11.5-14.5) Plt Count 288 k/mm3 (150-375) MPV 8.9 fl (7.4-10.4) Immature Gran % (Auto) 0.2 % (0-0.5) Neut % (Auto) 43.0 L % (45.5-73.1) Lymph % (Auto) 45.5 H % (18.3-44.2) [place] % (Auto) 6.6 % (2.6-8.5) Eos % (Auto) 3.9 % (0-4.4) Baso % (Auto) 0.8 % (0.2-1.2) Lymph # (Auto) 4.84 H K/mm3 (0.9-3.2) [place] # (Auto) 0.7 H K/mm3 (0.1-0.6) Eos # (Auto) 0.4 H K/mm3 (0-0.3) Baso # (Auto) 0.1 K/mm3 (0.0-0.1) Abs Immat Gran (auto) 0.02 K/mm3 (0.00-0.031) Absolute Neuts (auto) 4.6 K/mm3 (1.3-6.7) Absolute Nucleated RBC 0.000 K/mm3 (0.0-0.012) Nucleated RBC % 0.0 % (0.0-0.2) Sodium 138 mmol/L (137-145) Potassium 4.1 mmol/L (3.4-5.0) Chloride 108 H mmol/L (98-107) Carbon Dioxide 26 mmol/L (22-30) Anion Gap 4 mmol/L (4-12) BUN 20 H mg/dL (7-17) Creatinine 0.80 mg/dL (0.7-1.0) Estim Creat Clear Calc 87 ml/min Estimated GFR > 60 (59 - ) Glucose 91 mg/dL (65-110) Calcium 8.9 mg/dL (8.4-10.2) Urine Color Dark yellow (Yellow) Urine Appearance Cloudy H (Clear) Urine pH 5.5 (5.0-9.0) Ur Specific [place] 1.024 (1.001-1.035) Urine Protein 1+ H mg/dL (Negative) Urine Glucose (UA) Negative mg/dL (Negative) Urine Ketones Trace H mg/dL (Negative) Ur Blood (Man) 3+ H (Negative) Urine Nitrate Negative (Negative) Urine Bilirubin Negative (Negative) Urine Urobilinogen 1.0 mg/dL (<2.0) Leukocyte Esterase Rfl 1+ H DIA/UL (Negative) Urine RBC >100 H /hpf (0-2) Urine WBC 11-20 H /hpf (0-3) Ur Squamous Epith Cells None seen /hpf (Few) Urine Bacteria None seen /hpf Urine Casts 0-2 POC Urine HCG, Qual Negative (Negative) Patient hx anesthesia problems: none Family hx anesthesia problems: none Results Review: All pre-operative results and documents have been reviewed as part of the pre-operative evaluation. [facility] Past Medical History Medical History Anxiety Bipolar 1 disorder BMI 33.0-33.9,adult BMI 34.0-34.9,adult Cerumen impaction Otitis media Panic disorder Primary narcolepsy without cataplexy Sleep paralysis Weight decrease Family History Family History Mother Family history of multiple sclerosis Asthma Acute myocardial infarction Father Hypertension Grandparent Diabetes mellitus Sibling Thyroid activity decreased Other Family history of malignant neoplasm of thyroid Social History Social History Smoking packs per day: 1 Smoking cigarettes per day: 20.0 Years smoked: 22 Smoking pack-years: 22.00 Smoking status: Current every day smoker Second hand tobacco smoke exposure: No Alcohol intake: current Substance use: never Substance use type: does not use Do You Feel Safe in your Home?: Yes Lack of Transportation: No Lack of Food: Never True Current Housing: I Have Housing Concerned About Future Housing: No Difficulty Paying Gas/Electric Bills: No Difficulty Paying for Meds: No Currently Unemployed: No Education: High School Diploma/GED Difficulty w/ Childcare or Family Care: No Living arrangements: with family Occupation/Education: occupation 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 Informed Consent: The patient's anesthetic plan and its attendant risks and benefits were discussed with the patient/family/POA. Questions were solicited and answers provided to the satisfaction of the patient/family/POA.
[2024-04-10] MEDS: LIDOCAINE HCL 2% GEL UROJET 10 ML PKG MUCOUS MEM (12:15)
--- NOTE | 2024-04-10 12:27 | W.PM.PROC2 ---
Procedure Note - Detailed Date of Procedure 04/10/24 Pre-op Diagnosis R distal ureteral stones Post-op Diagnosis Same Procedure Performed cystoscopy, right retrograde pyelogram, right ureteroscopy stone extraction, right stent placement Surgeon Sav Rangel MD Anesthesia General Indications she has a right distal stone she has failed a trial of conservative stone passage. She is here today for intervention. Understands risks of bleeding, infection, inability the stone, damage to the urinary tract. She agrees to proceed Findings distal ureteral stone extracted intact Description of Procedure she was correctly identified. Informed consent obtained. From the operating room. She was given general anesthesia. She was placed in dorsal lithotomy position. She was prepped and draped sterile fashion. Time-out performed. Cystoscopy revealed a normal-appearing bladder without signs of infection or abnormalities. Ureteral orifices were normal. I did a gentle retrograde pyelogram on the right. The stone was seen on radiation control health physicist radiograph. She had minimal hydronephrosis proximal to the stone. Placed a guidewire to the kidney. I dilated the ureter the 810 dilator. I performed ureteroscopy. Two stones were encountered. the largest 1 was basketed. It was brought down through the ureter. The smaller stone was dragged out with the larger stone. The larger stone was sent for pathologic analysis. I re-examined the ureter with ureteroscopy although up to the renal pelvis. There was no stone seen. There was minimal irritation to the ureter. There was some edema in the right distal ureter. I elected to leave a stent. I placed a 4.8 variable length stent. Proximal coil the lower pole kidney. Distal coil the bladder. The bladder was drained uro jet was applied. She was awakened transferred to PACU in stable condition Implants ureteral stent Estimated Blood Loss 0 Drains Yes ( ureteral stent) Pathology Yes ( stone) Condition Stable
[2024-04-10] MEDS: HYDROcodone/acetaminophen (*CRX) 5-325 MG TABLET 1 TAB PO (15:24)
[2024-04-10] MEDS: ONDANSETRON INJ 4 MG/2 ML VIAL IV PUSH (15:27)
[2024-04-10] MEDS: ALPRAZolam (*CRX) 0.5 MG TABLET PO (17:11)
[2024-04-10] MEDS: oxyBUTYnin CHLORIDE 5 MG TABLET PO (17:49)
[2024-04-11] MEDS: HYDROcodone/acetaminophen (*CRX) 5-325 MG TABLET 1 TAB PO (03:00)
[2024-04-11 06:00] VITALS: BP 127/80; PULSE 68; RESP 16; TEMP 36.5; O2SAT 98
[2024-04-11] MEDS: oxyBUTYnin CHLORIDE 5 MG TABLET PO ×2 (06:30→12:55)
--- NOTE | 2024-04-11 08:43 | PM.IMPN ---
Progress Note: A&P Assessment and Plan (1) Acute right flank pain: Code(s): R10.9 - Unspecified abdominal pain Status: Acute (2) Calculus of distal right ureter: Code(s): N20.1 - Calculus of ureter Status: Acute (3) Complicated UTI (urinary tract infection): Code(s): N39.0 - Urinary tract infection, site not specified Status: Acute (4) Dehydration: Code(s): E86.0 - Dehydration Status: Acute Plan Patient is a 38-year-old female with history of anxiety, present ED with a chief complaint of right fem pain. Patient has been having intermittent right flank pain since March 04, 2024, it radiating to the right groin. Patient came to ED March 13/2024, patient was found have right-sided kidney stone about 6.8 mL. Patient was discharged and follow-up with urologist. In past few days, patient has worsening flank pain, therefore patient came back to ED for further evaluation and management. Patient also has intermittent nausea, poor appetite, poor urine output. Patient denies chest pain shortness breast fever chills headache, focal weakness.Upon arrival to ED, patient is afebrile 98.1, tachycardia 100, pulse ox 99 on room air, lab showed leukocytosis 10,600, elevated BUN creatinine ratio 20/0.8 UA showed cloudy urine, hematuria and pyuria The following med issues have been addressed during hospitalization Right flank pain Likely resulting from kidney stone and UTI ED physician consulted urologist Keep patient p.o., start normal saline IV Follow-up renal ultrasound Optimize pain management Urologist performed cystoscopy, right retrograde pyelogram, right ureteroscopy stone extraction, right stent placement Complicated UTI UA shows pyuria, hematuria, likely resulting from obstruction or kidney stone Patient also has mild leukocytosis Start ceftriaxone 1 g IV daily Follow-up urine culture per primary care doctor Switch to cefdinir p.o. Dehydration Patient is a poor intake due to nausea Elevated BUN creatinine ratio above 20 Received normal saline IV Corrected Subjective Date/time seen: 04/11/24 08:43 Interval history: Patient is afebrile, blood pressure stable, urine cultures pending. Patient feels the pain is tolerable, denies nausea vomiting. Patient also denies headache, vision change, focal weakness Exam Narrative: GENERAL: Pleasant, in no acute distress. Well-nourished. - EYES: EOMI. Anicteric. - HENT: Moist mucous membranes. - LUNGS: Clear to auscultation bilaterally, no wheezing, rhonchi, or rales. - CARDIOVASCULAR: Regular rate and rhythm. No murmur. No JVD. - ABDOMEN: Soft, slightly right flank pain tender and non-distended. No palpable masses. - EXTREMITIES: No edema. Peripheral pulses 2+. Non-tender. - NEUROLOGIC: No focal neurological deficits. CN II-XII grossly intact. - PSYCHIATRIC: Awake, Alert and oriented x 3. Appropriate mood and affect. - SKIN: No rashes or lesions. Warm. - LYMPH: No cervical lymphadenopathy. Objective Data Vital Signs Vital Signs: Vital Signs - 24 hr 04/10/24 11:05 04/10/24 12:27 04/10/24 12:35 Temperature 97.9 F 98.8 F Pulse Rate 80 66 67 Respiratory Rate 16 12 12 Blood Pressure 136/72 102/68 103/72 Pulse Oximetry 94 100 100 Oxygen Delivery Room Air Simple Face Mask Simple Face Mask Oxygen Flow Rate 8 8 04/10/24 12:50 04/10/24 13:00 04/10/24 13:15 Temperature Pulse Rate 61 102 H 102 H Respiratory Rate 12 20 12 Blood Pressure 106/73 123/71 129/67 Pulse Oximetry 100 98 Oxygen Delivery Simple Face Mask Room Air Room Air Oxygen Flow Rate 8 04/10/24 13:45 04/10/24 20:50 04/10/24 22:00 Temperature 97.4 F L 97.4 F L Pulse Rate 76 76 81 Respiratory Rate 16 16 18 Blood Pressure 137/91 H 118/84 Pulse Oximetry 100 100 98 Oxygen Delivery Room Air Oxygen Flow Rate 04/11/24 06:00 Temperature 97.7 F Pulse Rate 68 Respiratory Rate 16 Blood Pressure 127/80 Pulse Oximetry 98 Oxygen Delivery Oxygen Flow Rate Intake/Output Intake/Output: Intake & Output 04/08/24 04/09/24 04/10/24 04/11/24 23:59 23:59 23:59 23:59 Intake Total 390 300 Output Total 850 Balance -460 300 Meds/Results Medications: Active Medications Generic Name Dose Route Start Last Admin Trade Name Freq PRN Reason Stop Dose Admin Acetaminophen 650 mg 04/10/24 00:40 Acetaminophen 650 Mg Suppository RECTAL Q6H PRN Mild Pain (1-3) or Fever Hydrocodone Bitart/Acetaminophen 1 tab 04/10/24 13:19 04/11/24 03:00 Hydrocodone/Acetaminophen (*Crx) 5-325 Mg Tablet PO 1 tab Q12H PRN Administration pain 4-6 Alprazolam 0.5 mg 04/10/24 13:19 04/11/24 08:09 Alprazolam (*Crx) 0.5 Mg Tablet PO Not Given TID [facility] Glucagon 1 mg 04/10/24 00:40 Glucagon For Inj 1 Mg Vial IM PRN PRN Hypoglycemia Protocol Glucose 15 gm 04/10/24 00:40 Glucose Oral Gel 15 Gm Of Glucse In 37.5 Gm Tube PO PRN PRN Hypoglycemia Protocol Hydromorphone HCl 0.5 mg 04/10/24 00:40 04/10/24 10:51 Hydromorphone Hcl Inj (*Crx) 1 Mg/Ml Syr IV PUSH 0.5 mg Q4H PRN Administration Pain Rated 7-10 Loratadine 10 mg 04/11/24 09:00 04/11/24 08:09 Loratadine 10 Mg Tablet PO Not Given DAILY [facility] Methylphenidate HCl 10 mg 04/10/24 17:00 04/11/24 08:09 Methylphenidate Hcl (*Crx) 10 Mg Tablet PO Not Given BID [facility] Multivitamins/Minerals 1 tab 04/11/24 09:00 04/11/24 08:10 Multivitamins /C Lutein (Centrum Silver) Tablet *Bkc PO Not Given DAILY [facility] Ondansetron HCl 4 mg 04/10/24 00:40 04/10/24 15:27 Ondansetron Inj 4 Mg/2 Ml Vial IV PUSH 4 mg Q4H PRN Administration Nausea Ondansetron HCl 4 mg 04/10/24 11:16 Ondansetron Inj 4 Mg/2 Ml Vial IV PUSH ONCE PRN Nausea Oxybutynin Chloride 5 mg 04/10/24 13:19 04/10/24 17:49 Oxybutynin Chloride 5 Mg Tablet PO 5 mg TID PRN Administration Abdominal Cramping Phenazopyridine HCl 200 mg 04/10/24 13:19 Phenazopyridine Hcl 100 Mg Tablet PO TIDWM PRN Abdominal Cramping/DYSURIA Radiology Results: ITS Impressions Abdomen/Pelvis CT 04/09/24 21:44 IMPRESSION: 2.2 x 5.7 mm punctate calculi are noted in the region of the distal ureter and ureterovesical junction, respectively, but with no evidence of hydronephrosis. If further evaluation is required, consider repeat CT examination with IV contrast material more definitive localization of the right pelvic calcifications with respect of the ureter Retrograde Pyelogram 04/10/24 12:52 IMPRESSION: 1. Unremarkable right retrograde pyelogram and placement of a right internal ureteral stent which is in expected position. See procedure note for further detail. Renal Ultrasound 04/10/24 17:01 IMPRESSION: 1. Normal kidneys without hydronephrosis.
--- NOTE | 2024-04-11 08:46 | PM.DS ---
DS: Admitting Diagnosis Discharge Date (1) Acute right flank pain: Code(s): R10.9 - Unspecified abdominal pain Status: Acute (2) Calculus of distal right ureter: Code(s): N20.1 - Calculus of ureter Status: Acute (3) Complicated UTI (urinary tract infection): Code(s): N39.0 - Urinary tract infection, site not specified Status: Acute (4) Dehydration: Code(s): E86.0 - Dehydration Status: Acute Admitting Diagnosis (1) Acute right flank pain: Code(s): R10.9 - Unspecified abdominal pain Status: Acute (2) Calculus of distal right ureter: Code(s): N20.1 - Calculus of ureter Status: Acute (3) Complicated UTI (urinary tract infection): Code(s): N39.0 - Urinary tract infection, site not specified Status: Acute (4) Dehydration: Code(s): E86.0 - Dehydration Status: Acute DS: Discharge Diagnosis Discharge Diagnosis (1) Acute right flank pain: Code(s): R10.9 - Unspecified abdominal pain Status: Acute (2) Calculus of distal right ureter: Code(s): N20.1 - Calculus of ureter Status: Acute (3) Complicated UTI (urinary tract infection): Code(s): N39.0 - Urinary tract infection, site not specified Status: Acute (4) Dehydration: Code(s): E86.0 - Dehydration Status: Acute DS: Summary Hospital Course Hospital Course: Patient is a 38-year-old female with history of anxiety, present ED with a chief complaint of right fem pain. Patient has been having intermittent right flank pain since March 04, 2024, it radiating to the right groin. Patient came to ED March 13/2024, patient was found have right-sided kidney stone about 6.8 mL. Patient was discharged and follow-up with urologist. In past few days, patient has worsening flank pain, therefore patient came back to ED for further evaluation and management. Patient also has intermittent nausea, poor appetite, poor urine output. Patient denies chest pain shortness breast fever chills headache, focal weakness.Upon arrival to ED, patient is afebrile 98.1, tachycardia 100, pulse ox 99 on room air, lab showed leukocytosis 10,600, elevated BUN creatinine ratio 20/0.8 UA showed cloudy urine, hematuria and pyuria The following med issues have been addressed during hospitalization Right flank pain Likely resulting from kidney stone and UTI ED physician consulted urologist Keep patient p.o., start normal saline IV Follow-up renal ultrasound Optimize pain management Urologist performed cystoscopy, right retrograde pyelogram, right ureteroscopy stone extraction, right stent placement Complicated UTI UA shows pyuria, hematuria, likely resulting from obstruction or kidney stone Patient also has mild leukocytosis Start ceftriaxone 1 g IV daily Follow-up urine culture per primary care doctor Switch to cefdinir p.o. Dehydration Patient is a poor intake due to nausea Elevated BUN creatinine ratio above 20 Received normal saline IV Corrected Time Spent with Patient Time attestation: Total time spent providing and/or coordinating discharge services: Exam Narrative: GENERAL: Pleasant, in no acute distress. Well-nourished. - EYES: EOMI. Anicteric. - HENT: Moist mucous membranes. - LUNGS: Clear to auscultation bilaterally, no wheezing, rhonchi, or rales. - CARDIOVASCULAR: Regular rate and rhythm. No murmur. No JVD. - ABDOMEN: Soft, slightly right flank pain tender and non-distended. No palpable masses. - EXTREMITIES: No edema. Peripheral pulses 2+. Non-tender. - NEUROLOGIC: No focal neurological deficits. CN II-XII grossly intact. - PSYCHIATRIC: Awake, Alert and oriented x 3. Appropriate mood and affect. - SKIN: No rashes or lesions. Warm. - LYMPH: No cervical lymphadenopathy. DS: Data Data Completed and Pending Pending studies at discharge: Pending at discharge 04/10/24 12:20 Surgical [PTH] Routine Discharge Plan Discharge Attending physician on discharge: Roula Lozano Consulting providers: Ken Mckeon; Sav Rangel; Gregorio Lee; Kishan Mcclendon; Brandyn Alanis Discharging Clinician: Roula Lozano Anticipated Discharge Date/Time: 04/11/24 13:27 Patient Disposition: Home, Self-Care Activity: as tolerated Diet: as tolerated Patient Instructions: Pain Management (DC) Patient Language: Setswana Stand Alone Forms: Work/School Release IP Follow-up/Referrals: Sav Rangel MD [Physician] - (See urologist at scheduled appointment) Vaibhav Myers MD [Primary Care Provider] - (See PCP in 1 week) Discharge Medications: New oxybutynin chloride 5 mg Tablet 5 mg PO TID PRN (Reason: Abdominal Cramping) Qty: 30 0RF ondansetron 4 mg tablet,disintegrating 4 mg PO Q8H PRN (Reason: nausea and vomiting) Qty: 30 0RF cefdinir 300 mg capsule 300 mg PO Q12H Qty: 10 0RF oxycodone-acetaminophen 5-325 mg tablet 1 tablet PO Q6H PRN (Reason: pain) Qty: 14 0RF Continued alprazolam 0.5 mg Tablet 0.5 mg PO TID Adults Multivitamin 18 mg iron-400 mcg-25 mcg Tablet 1 tablet PO DAILY methylphenidate HCl [Ritalin] 10 mg tablet 10 mg PO BID loratadine [Allergy Relief (loratadine)] 10 mg tablet 10 mg PO DAILY Discontinued hydrocodone-acetaminophen 5-325 mg tablet 1 tablet PO Q12H PRN (Reason: pain) Qty: 14 0RF Date of admission: 04/10/24 00:40 Primary Care Provider: Vaibhav Myers Admitting Provider: Treasure Beard Attending physician on admission: Roula Lozano Condition: Stable
[2024-04-11] MEDS: ACETAMINOPHEN 325 MG TABLET 650 MG PO (09:08)
[2024-04-11 09:27] LABS: Basophils Percent Auto 0.4 % (0.2-1.2); Eosinophils Absolute Auto 0.1 K/mm3 (0-0.3); Eosinophils Percent Auto 0.8 % (0-4.4); Hemoglobin 11.5 g/dL (12.0-15.0); Immature Granulocyte Absolute 0.04 K/mm3 (0.00-0.031); Immature Granulocyte Percent A 0.4 % (0-0.5); Lymphocytes Absolute Auto 4.38 K/mm3 (0.9-3.2); Lymphocytes Percent Auto 40.5 % (18.3-44.2); Mean Corpuscular HGB Conc 32.9 g/dl (32-36); Mean Corpuscular Hemoglobin 32.1 pg (26-34); Mean Corpuscular Volume 97.8 fl (80-100); Mean Platelet Volume 9.1 fl (7.4-10.4); Monocytes Absolute Auto 0.4 K/mm3 (0.1-0.6); Monocytes Percent Auto 3.9 % (2.6-8.5); Neutrophils Absolute Auto 5.8 K/mm3 (1.3-6.7); Platelet Count Result 246 k/mm3 (150-375); Red Blood Count 3.58 M/mm3 (4.2-5.4); White Blood Count 10.8 K/mm3 (4.5-10.0)
--- NOTE | 2024-04-11 10:20 | P.PNUR_ITS ---
Progress Note: A&P Assessment and Plan (1) Calculus of distal right ureter: Code(s): N20.1 - Calculus of ureter Status: Acute (2) Complicated UTI (urinary tract infection): Code(s): N39.0 - Urinary tract infection, site not specified Status: Acute Plan Patient is doing well post-op. Reports intermittent bladder spasms. Reviewed need for hydration with plain water throughout the day, goal 80-100oz/day, to minimize spasms. Instructed to avoid bladder irritants while stent is in place. Urine culture is pending, WBC 10, does not appear to be on antibiotics. Would recommend discharge home on 5-day course abx. Stent is scheduled to be removed in office 04/21/2024. All questions answered. Urologically cleared for discharge. Subjective Subjective Date/Time Seen: 04/11/24 10:20 Interval history: POD1 cystoscopy, right retrograde pyelogram, right ureteroscopy stone extraction, right stent placement with Dr. Rangel for obstructing right ureteral stone. Exam Const: General: comfortable Objective Data Vital Signs Vital Signs: Vital Signs - 24 hr 04/10/24 11:05 04/10/24 12:27 04/10/24 12:35 Temperature 97.9 F 98.8 F Pulse Rate 80 66 67 Respiratory Rate 16 12 12 Blood Pressure 136/72 102/68 103/72 Pulse Oximetry 94 100 100 Oxygen Delivery Room Air Simple Face Mask Simple Face Mask Oxygen Flow Rate 8 8 04/10/24 12:50 04/10/24 13:00 04/10/24 13:15 Temperature Pulse Rate 61 102 H 102 H Respiratory Rate 12 20 12 Blood Pressure 106/73 123/71 129/67 Pulse Oximetry 100 98 Oxygen Delivery Simple Face Mask Room Air Room Air Oxygen Flow Rate 8 04/10/24 13:45 04/10/24 20:50 04/10/24 22:00 Temperature 97.4 F L 97.4 F L Pulse Rate 76 76 81 Respiratory Rate 16 16 18 Blood Pressure 137/91 H 118/84 Pulse Oximetry 100 100 98 Oxygen Delivery Room Air Oxygen Flow Rate 04/11/24 06:00 Temperature 97.7 F Pulse Rate 68 Respiratory Rate 16 Blood Pressure 127/80 Pulse Oximetry 98 Oxygen Delivery Oxygen Flow Rate Intake/Output Intake/Output: Intake & Output 04/08/24 04/09/24 04/10/2404/11/24 23:59 23:59 23:59 23:59 Intake Total 390 300 Output Total 850 Balance -460 300 Meds/Results Medications: Active Medications Generic Name Dose Route Start Last Admin Trade Name Freq PRN Reason Stop Dose Admin Acetaminophen 650 mg 04/11/24 08:59 04/11/24 09:08 Acetaminophen 325 Mg Tablet PO 650 mg Q4H PRN Administration Mild Pain (1-3) or Fever Hydrocodone Bitart/Acetaminophen 1 tab 04/10/24 13:19 04/11/24 03:00 Hydrocodone/Acetaminophen (*Crx) 5-325 Mg Tablet PO 1 tab Q12H PRN Administration pain 4-6 Alprazolam 0.5 mg 04/10/24 13:19 04/11/24 08:09 Alprazolam (*Crx) 0.5 Mg Tablet PO Not Given TID EPI Glucagon 1 mg 04/10/24 00:40 Glucagon For Inj 1 Mg Vial IM PRN PRN Hypoglycemia Protocol Glucose 15 gm 04/10/24 00:40 Glucose Oral Gel 15 Gm Of Glucse In 37.5 Gm Tube PO PRN PRN Hypoglycemia Protocol Hydromorphone HCl 0.5 mg 04/10/24 00:40 04/10/24 10:51 Hydromorphone Hcl Inj (*Crx) 1 Mg/Ml Syr IV PUSH 0.5 mg Q4H PRN Administration Pain Rated 7-10 Loratadine 10 mg 04/11/24 09:00 04/11/24 08:09 Loratadine 10 Mg Tablet PO Not Given DAILY [facility] Methylphenidate HCl 10 mg 04/10/24 17:00 04/11/24 08:09 Methylphenidate Hcl (*Crx) 10 Mg Tablet PO Not Given BID EPI Multivitamins/Minerals 1 tab 04/11/24 09:00 04/11/24 08:10 Multivitamins /C Lutein (Centrum Silver) Tablet *Bkc PO Not Given DAILY [facility] Ondansetron HCl 4 mg 04/10/24 00:40 04/10/24 15:27 Ondansetron Inj 4 Mg/2 Ml Vial IV PUSH 4 mg Q4H PRN Administration Nausea Ondansetron HCl 4 mg 04/10/24 11:16 Ondansetron Inj 4 Mg/2 Ml Vial IV PUSH ONCE PRN Nausea Oxybutynin Chloride 5 mg 04/10/24 13:19 04/10/24 17:49 Oxybutynin Chloride 5 Mg Tablet PO 5 mg TID PRN Administration Abdominal Cramping Phenazopyridine HCl 200 mg 04/10/24 13:19 Phenazopyridine Hcl 100 Mg Tablet PO TIDWM PRN Abdominal Cramping/DYSURIA Radiology Results: ITS Impressions Abdomen/Pelvis CT 04/09/24 21:44 IMPRESSION: 2.2 x 5.7 mm punctate calculi are noted in the region of the distal ureter and ureterovesical junction, respectively, but with no evidence of hydronephrosis. If further evaluation is required, consider repeat CT examination with IV contrast material more definitive localization of the right pelvic calcifications with respect of the ureter Retrograde Pyelogram 04/10/24 12:52 IMPRESSION: 1. Unremarkable right retrograde pyelogram and placement of a right internal ureteral stent which is in expected position. See procedure note for further detail. Renal Ultrasound 04/10/24 17:01 IMPRESSION: 1. Normal kidneys without hydronephrosis. Labs Labs: Laboratory Results - last 24 hr 04/11/24 09:12 WBC 10.8 H RBC 3.58 L Hgb 11.5 L Hct 35.0 L MCV 97.8 MCH 32.1 MCHC 32.9 RDW 13.0 Plt Count 246 MPV 9.1 Immature Gran % (Auto) 0.4 Neut % (Auto) 54.0 Lymph % (Auto) 40.5 Hyde % (Auto) 3.9 Eos % (Auto) 0.8 Baso % (Auto) 0.4 Lymph # (Auto) 4.38 H Hyde # (Auto) 0.4 Eos # (Auto) 0.1 Baso # (Auto) 0.0 Abs Immat Gran (auto) 0.04 H Absolute Neuts (auto) 5.8 Absolute Nucleated RBC 0.000 Nucleated RBC % 0.0
[2024-04-11] MEDS: ALPRAZolam (*CRX) 0.5 MG TABLET PO (12:55)
--- NOTE | 2024-04-11 13:53 | P.PNAN_ITS ---
Anes - Prog Note Post-Op Date/Time: 04/11/24 13:53 Cardiovascular status: normal Respiratory status: normal Airway patency: baseline Mental status: baseline Post-Op hydration status: normal Vital Signs: Last Vital Signs Temp 97.7 F 04/11/24 06:00 Pulse 68 04/11/24 06:00 Resp 16 04/11/24 06:00 BP 127/80 04/11/24 06:00 Pulse Ox 98 04/11/24 06:00 O2 Del Method Room Air 04/11/24 09:08 O2 Flow Rate 8 04/10/24 12:50 Pain Score (VAS): 0/10 I/O: Intake & Output 04/10/24 04/11/24 04/11/24 23:59 07:59 15:59 Intake Total 240 300 240 Balance 240 300 240 Laboratory Tests 04/11/24 09:12 04/09/24 22:10 04/11/24 09:12 WBC 10.8 H RBC 3.58 L Hgb 11.5 L Hct 35.0 L MCV 97.8 MCH 32.1 MCHC 32.9 RDW 13.0 Plt Count 246 MPV 9.1 Immature Gran % (Auto) 0.4 Neut % (Auto) 54.0 Lymph % (Auto) 40.5 Garden % (Auto) 3.9 Eos % (Auto) 0.8 Baso % (Auto) 0.4 Lymph # (Auto) 4.38 H Garden # (Auto) 0.4 Eos # (Auto) 0.1 Baso # (Auto) 0.0 Abs Immat Gran (auto) 0.04 H Absolute Neuts (auto) 5.8 Absolute Nucleated RBC 0.000 Nucleated RBC % 0.0 Post-procedural complaints: none Patient Feedback: Patient satisfied with anesthetic care.
== END 2024-04-11 13:30 | disposition home or self-care (01) ==
LOC: ANHED 04-10 01:05 → ANH2MED 04-10 01:36
PROVIDERS: Student in an Organized Health Care Education/Training Program; Urology; Admitting Provider Internal Medicine; Emergency Provider Physician Assistant; PCP Family Medicine; Visit Provider Hospitalist
PROC: (CPT 52352; principal; 2024-04-10 12:00)
DX: N20.1 Calculus of ureter (principal); N39.0 Urinary tract infection, site not specified; E86.0 Dehydration
CPT/HCPCS: 52332; 52352; 36415; 74176; 74420; 76775; 80048; 81001; 81025; 82365; 85025; 85027; 87086; 88300; 96374; 96375; 99285; A9270; C1769; C2617; G0378; J0696; J1100; J1171; J1885; J2003; J2060; J2250; J2270; J2405; J2704; J3010; J7030; J7120; Q9966

== ENCOUNTER 2025-02-16 18:23 | Emergency (ER) | payer BC, SELFPAY ==
--- OUTSIDE RECORDS SUMMARY | 2025-02-16 18:25 | XMS_ITS | Clinical Summary ---
Author Organization [facility] Virtual Care Address [address] [place] [phone] Phone Care Team Providers Care Club Room Attendant Name Role Phone Vaibhav Myers MD Primary Care Provider [phone] Allergies Active Allergy Reactions Criticality Noted Date Comments Paroxetine Unknown 12/26/2020 Medications ALPRAZolam (XANAX) 0.5 mg tablet 01/07/2021 Activ e Active Problems No known active problems Surgical History Surgery Date Site/Laterality Comments TUBAL LIGATION CHOLECYSTECTOMY Medical History Medical History Date Comments Anxiety Family History Medical History Relation Name Comments Diabetes Maternal Grandfather Diabetes Maternal Grandmother Heart disease Mother Relation Name Status Comments Maternal Grandfather Maternal Grandmother Mother Social History Tobacco Use Types Packs/Day Years Used Date Smoking Tobacco: Every Day Personal Safety Answer Date Recorded Getting School Help Needed Not on file 07/03 Comments Unknown Sex and Gender Information Value Date Recorded Sex Assigned at Not on file Legal Sex Female 6:24 AM CDT Gender Identity Not on file Sexual Orientation Not on file Obstetrics History Last Filed Vital Signs Vital Sign Reading Time Taken Comments Blood Pressure 124/86 01/10/2021 9:58 AM CDT Pulse 108 01/10/2021 9:58 AM CDT Temperature 36.4 C (97.6 F) 01/10/2021 9:58 AM CDT Respiratory Rate 16 01/10/2021 9:58 AM CDT Oxygen Saturation 99% 01/10/2021 9:58 AM CDT Inhaled Oxygen Concentration - - Weight 84.6 kg (186 lb 6.4 oz) 01/10/2021 9:58 A M CDT Height 162.6 cm (5' 4) 01/10/2021 9:58 AM CDT Body Mass Index 32 01/10/2021 9:58 AM CDT Plan of Treatment Not on file Insurance [employer] Care Teams Club Room Attendant Relationship Specialty Start Date End Date Vaibhav Myers MD PCP - General Family Medicine 12/25/20
--- OUTSIDE RECORDS SUMMARY | 2025-02-16 18:27 | XMS_ITS | Clinical Summary ---
Author Organization [facility] Address [address] [place] [address] Care Team Providers Care Net Mobile Developer Name Role Phone Vaibhav Myers MD Primary Care Provider [phone] Source Comments [facility],non-owned Affiliates and Associated Physician Practices is amultiple site organization consisting of ambulatory clinics and hospital sitesin [place], [place], [place] and [place]. This disclosure is being madepursuant to the Care Everywhere program and may not contain all information available regarding this patient. Last updated 18.[facility] Allergies Active Allergy Reactions Criticality Noted Date Comments Paroxetine Vomiting 12/01/2017 Medications * Be aware that medications may not be up to date on this document. Alwaysverify current medications with the patient. ALPRAZolam (XANAX PO) Active TRAMADOL HCL ER PO A ctive Ibuprofen (MOTRIN PO) Active Active Problems No known active problems Social History Tobacco Use Types Packs/Day Years Used Date Smoking Tobacco: Every Day Smokeless Tobacco: Never Comments No Sex and Gender Information Value Date Recorded Sex Assigned at Not on file Legal Sex Female 6:23 PM INSPECTOR TECHNICIAN Gender Identity Not on file Sexual Orientation Not on file Last Filed Vital Signs Vital Sign Reading Time Taken Comments Blood Pressure 128/78 05/17/2019 4:34 PM INSPECTOR TECHNICIAN Pulse 102 05/17/2019 4:34 PM INSPECTOR TECHNICIAN Temperature 36.9 C (98.4 F) 05/17/2019 4:34 PM INSPECTOR TECHNICIAN Respiratory Rate 16 05/17/2019 4:34 PM INSPECTOR TECHNICIAN Oxygen Saturation 99% 05/17/2019 4:34 PM INSPECTOR TECHNICIAN Inhaled Oxygen Concentration - - Weight 90.5 kg (199 lb 9.6 oz) 05/17/2019 4:34 P M INSPECTOR TECHNICIAN Height 160 cm (5' 3) 05/17/2019 4:34 PM INSPECTOR TECHNICIAN Body Mass Index 35.36 05/17/2019 4:34 PM INSPECTOR TECHNICIAN Plan of Treatment Health Maintenance Due Date Last Done Comments HIV SCREENING 2000 HEPATITIS C SCREENING 10/30/2003 DTAP/TDAP/TD VACCINES (1 - Tdap) 2004 HEPATITIS B VACCINE (1 of 3 - 19+ 3-dose series) 2004 PNEUMOCOCCAL VACCINE (1 of 2 - PCV) 2004 PAP SMEAR 2006 HPV VACCINE (1 - 3-dose SCDM series) 2012 DEPRESSION SCREENING 05/03/2024 COVID-19 VACCINE (1 - 2023-2 5 season) 2025 INFLUENZA VACCINE (#1) 2025 ZOSTER VACCINE (1 of 2) 11/04/2035 HIB VACCINE Aged Out No longer eligi ble based on patient's age to complete this topic MENINGOCOCCAL (Group B) VACC INE SHARED DECISION-MAKING Aged Out No longer eligibl e based on patient's age to complete this topic MENINGOCOCCAL GROUPS A/C/Y/W VACCINE Aged Out No longer eligible b ased on patient's age to complete this topic Insurance [employer] SELF PAY NO INSURANCE Member Subscriber Plan / Payer (Ef fective for All Dates) Name:Neelam Jones Cristina Member ID:Not on file Relation to Subscriber:Not on file Name:NEELAM JONES Subscriber ID:Not on file (Home) Address: [address] [place] [phone] Payer ID:Not on file Group ID:Not on file Type:Self Pay Address: [address] Care Teams Net Mobile Developer Relationship Specialty Start Date End Date Vaibhav Myers MD [address] [place] [address] PCP - General Family Medicine 12/01/17
[2025-02-16 18:32] VITALS: BP 146/104; PULSE 113; RESP 20; TEMP 36.4; O2SAT 100
[2025-02-16 18:53] LABS: EDSTREPNEGPOS1 Negative (Negative)
--- NOTE | 2025-02-16 20:47 | ED.URI ---
HPI - URI/Sore Throat General Chief Complaint: Ear Stated Complaint: Ear Pain/Sore Throat Time Seen by Provider: 02/16/25 19:11 Source: patient and RN notes reviewed Mode of arrival: ambulatory Limitations: no limitations History of Present Illness HPI Narrative: Patient presents today complaining of a one-week history of left ear pain and pressure with sore throat, headache, chills since yesterday. Denies congestion, rhinorrhea. Currently rates her pain 4/10 and has tried ibuprofen without improvement. Related Data Home Medications ?Medication ?Instructions ?Recorded ?Confirmed ?Last Taken ?Type alprazolam 0.5 mg tablet 0.5 mg PO TID 09/30/19 02/08/25 Unknown History multivit with minerals-iron 18 1 tablet PO DAILY 09/30/19 02/08/25 Unknown History mg-folic ac 400 mcg-vit K 25 mcg tablet (Adults Multivitamin) loratadine 10 mg tablet (Allergy 10 mg PO DAILY 11/16/23 02/08/25 Unknown History Relief (loratadine)) methylphenidate HCl 20 mg tablet mg PO BID 09/28/24 02/08/25 Unknown History Allergies Allergy/AdvReac Type Severity Reaction Status Date / Time buspirone AdvReac Intermediate Agitated Verified 02/16/25 18:35 modafinil AdvReac Intermediate Unknown Verified 02/16/25 18:35 paroxetine (From Paxil) AdvReac Intermediate Unknown Verified 02/16/25 18:35 morphine AdvReac Anxiety Verified 02/16/25 18:35 [facility] Past Medical History Medical History Otitis media Cerumen impaction BMI 34.0-34.9,adult BMI 33.0-33.9,adult Primary narcolepsy without cataplexy Sleep paralysis Weight decrease Anxiety Panic disorder Bipolar 1 disorder Surgical History Surgical History History of loop electrosurgical excision procedure (LEEP) History of lithotripsy Hx laparoscopic cholecystectomy History of tubal ligation Family History Family History Mother Family history of multiple sclerosis Asthma Acute myocardial infarction Father Hypertension Grandparent Diabetes mellitus Depression Sibling Thyroid activity decreased Depression Mother Depression Heart problem Father Heart problem Depression Hypertension Alcoholism Cerebrovascular accident Sibling Depression Other Family history of malignant neoplasm of thyroid Social History Social History Smoking packs per day: 1 Smoking cigarettes per day: 20.0 Years smoked: 22 Smoking pack-years: 22.00 Smoking status: Current every day smoker Second hand tobacco smoke exposure: No Alcohol intake: current Substance use: never Substance use type: does not use Do You Feel Safe in your Home?: Yes Lack of Transportation: No Lack of Food: Never True Current Housing: I Have Housing Concerned About Future Housing: No Difficulty Paying Gas/Electric Bills: No Difficulty Paying for Meds: No Currently Unemployed: No Education: High School Diploma/GED Difficulty w/ Childcare or Family Care: No Living arrangements: with family Occupation/Education: occupation 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 Please see nursing chart for further information. There is no relevant family history pertinent to the presenting complaint Exam Narrative: GENERAL: Mildly ill-appearing, well-nourished, and in no acute distress. HEAD: Normocephalic, atraumatic. EYES: EOMI. No redness or drainage. Conjunctivae normal. ENT: Mucous membranes pink and moist. Nares clear. No rhinorrhea. Right TM normal. Left TM with serous effusion without evidence of bacterial infection. Throat mildly erythematous without edema or exudate. Uvula midline. NECK: Normal AROM. Supple. No lymphadenopathy. CHEST: No respiratory distress. Clear to auscultation. HEART: Regular rate and rhythm. No murmur appreciated. EXTREMITIES: Normal range of motion. No edema. SKIN: Warm, dry, no rash. Capillary refill normal. Normal skin turgor. NEURO: No focal deficits. Alert and oriented x3. Gait steady. PSYCH: Normal affect. No signs of depression or anxiety. Course Course Level of Care: Express Care Visit Vital Signs Vital signs: Vital Signs Temperature 97.5 F L 02/16/25 18:32 Pulse Rate 113 H 02/16/25 18:32 Respiratory Rate 20 02/16/25 18:32 Blood Pressure 146/104 H 02/16/25 18:32 Pulse Oximetry 100 02/16/25 18:32 Oxygen Delivery Room Air 02/16/25 18:32 Temperature 97.5 F L 02/16/25 18:32 Pulse Rate 113 H 02/16/25 18:32 Respiratory Rate 20 02/16/25 18:32 Blood Pressure 146/104 H 02/16/25 18:32 Pulse Oximetry 100 02/16/25 18:32 Oxygen Delivery Room Air 02/16/25 18:32 Reviewed MDM - URI/Sore Throat MDM Narrative Medical decision making narrative: Patient presents today complaining of a one-week history of left ear pain and pressure with sore throat, headache, chills since yesterday. Denies congestion, rhinorrhea. Currently rates her pain 4/10 and has tried ibuprofen without improvement. Upon exam, patient is mildly ill appearing with mildly erythematous throat without edema or exudate, with a left-sided serous otitis media without evidence of bacterial infection. Rapid strep negative. Culture pending. Upon exam, patient's pulse was 92. Symptoms likely viral in etiology. Discussed [id number]-lebykut medication use and duration of illness. No prescription medications indicated at this time. Anticipatory guidance given. Differential Diagnosis Differential diagnosis: Likely upper respiratory infection, otitis media, viral infection, pharyngitis and other (Strep throat, otitis externa, ruptured TM, serous otitis) Lab Data Attestation: I reviewed the patient's lab results. Labs: Lab Results 02/16/25 Range/Units 18:50 POC Grp A Strep Screen Negative (Negative) Critical Care Time Critical Care Time Critical Care Time: No Discharge Plan Discharge Clinical Impression: Acute serous otitis media, left ear Qualifiers: Recurrence: non-recurrent Qualified Code(s): H65.02 - Acute serous otitis media, left ear Upper respiratory infection Qualifiers: URI type: unspecified URI Qualified Code(s): J06.9 - Acute upper respiratory infection, unspecified Patient Disposition: Home Condition: Stable Instructions: Upper Respiratory Infection (DC), Fluid In The Ear (Serous Otitis Media) (ED) Additional Instructions: Your rapid strep swab was negative today at [facility]. You will be notified in a few days if the culture comes back positive for strep, and appropriate antibiotics will be called in for you at that time. Your symptoms are likely due to a viral illness, which is not treated with antibiotics. Viral symptoms can be present for up to 7-10 days. Take Tylenol or ibuprofen for fever or pain. Consider an intranasal steroid such as Flonase to help with the fluid behind your left ear drum. Rest and stay hydrated. Follow up with your PCP in 7 days if symptoms are not improving. Go to the ER immediately if you have any difficulty breathing or swallowing. Patient Language: Belarusian Prescriptions: No Action alprazolam 0.5 mg Tablet 0.5 mg PO TID Adults Multivitamin 18 mg iron-400 mcg-25 mcg Tablet 1 tablet PO DAILY loratadine [Allergy Relief (loratadine)] 10 mg tablet 10 mg PO DAILY methylphenidate HCl 20 mg tablet PO BID Follow-up/Referrals: Vaibhav Myers MD [Primary Care Provider, [facility]] Time of Disposition: 19:18
== END 2025-02-16 19:21 | disposition home or self-care (01) ==
PROVIDERS: Emergency Provider Nurse Practitioner; PCP Family Medicine
DX: H65.02 Acute serous otitis media, left ear (principal); J06.9 Acute upper respiratory infection, unspecified; F17.210 Nicotine dependence, cigarettes, uncomplicated; F41.9 Anxiety disorder, unspecified
CPT/HCPCS: 87081; 87880; 99213; G0463

== ENCOUNTER 2025-03-28 01:23 | Day surgery (SDC) | payer BC, SELFPAY ==
[2025-03-20 13:07] VITALS: BMI 36.3
--- NOTE | 2025-03-20 13:14 | PC.NURSE ---
[facility] has started construction of its new state of the art ER which will open Spring 2026. With this, we anticipate parking may be a challenge for some our surgical patients and families. Parking spaces are limited but are available for all Surgical, obstetrics, and ER patients sharing this lot. If you arrive and find you are having a hard time finding a parking space, please note that we understand the challenges, please drive around the hospital and park near Hospital Entrance 1. When you enter this entrance, you can ask a volunteer to direct or take you back to the surgical waiting area to check in. We appreciate everyone?s understanding of these expected challenges while we build for your future. Report to the Outpatient Waiting Room, entrance under the green pavilion located off [address], at time _1115_ on date _[id number]_. Planned Procedure Time: _115pm_.? Time changes happen often and if your time is changed the preop area will call you the afternoon before. - You and your visitor will be asked to self-screen and do not enter if you have any COVID symptoms. Please call surgeon if you need to reschedule. - A mask is optional within the hospital at this time. Patients may have clear liquids (water, carbonated beverages, clear teas, apple juice) until 3 hours prior to surgery with a maximum of 20 ounces. - No food from midnight until time of surgery and no smoking, or chewing tobacco (or any form of nicotine). No chewing gum, candy or mints. Take only the following medications with a SIP of water on the morning of surgery: ___If needed may take Alprazolam and or Albuterol___ DO NOT STOP ANY OF YOUR OTHER PRESCRIPTION MEDICATIONS PRIOR TO SURGERY EXCEPT THE FOLLOWING Hold all vitamins and supplements for 3 days per anesthesiologist. Medications to discontinue per physician Date to take last dose____ Please no make-up, nail romansh, hairspray, perfume, deodorant, or body powder the day of surgery.? No jewelry (including any body piercings) or valuables the day of surgery, leave them at home.? Please take a shower or bath the night before, or the morning of, surgery with an antibacterial soap.? Wear comfortable, loose fitting clothing.? - Jewelry must be removed prior to entering the operating room.? Rings and piercings that are not removed may be cut off. - The hospital will not accept responsibility for valuables.? - Please leave all valuables, including medications, at home the day of surgery. If you are going home after surgery, a licensed home delivery driver must drive you home.? - NO public transportation without another adult if you receive anesthesia. - We recommend that an adult stay with you for 24 hours following discharge. - We also recommend that you do not drive, make important decision, drink alcoholic beverages, or take any drugs that were not prescribed by your health care provider for at least 24 hours after your discharge time. Follow any additional instructions given to you from your surgeon. Telephone instructions given to __Neelam__and asked if any additional questions and then verbalized understanding. Patient advised to call surgeon office or pre surgery nurse liaison [phone] if any additional questions.
[2025-03-28] VITALS (7 sets, daily range): BP systolic 110–128; BP diastolic 70–88; PULSE 49–92; RESP 18; TEMP 36.7; O2SAT 97–99; BMI 35.4
--- OUTSIDE RECORDS SUMMARY | 2025-03-28 01:26 | XMS_ITS | Clinical Summary ---
Author Organization [facility] Address [address] [place] [address] Care Team Providers Care Community Organization Aide Name Role Phone Vaibhav Myers MD Primary Care Provider [phone] Source Comments [facility],non-owned Affiliates and Associated Physician Practices is amultiple site organization consisting of ambulatory clinics and hospital sitesin [place], [place], [place] and [place]. This disclosure is being madepursuant to the Care Everywhere program and may not contain all information available regarding this patient. Last updated 18.[facility] Allergies Active Allergy Reactions Criticality Noted Date [...] on file Legal Sex Female 6:23 PM FOCUS PULLER Gender Identity Not on file Sexual Orientation Not on file Last Filed Vital Signs Vital Sign Reading Time Taken Comments Blood Pressure 128/78 05/17/2019 4:34 PM FOCUS PULLER Pulse 102 05/17/2019 4:34 PM FOCUS PULLER Temperature 36.9 C (98.4 F) 05/17/2019 4:34 PM FOCUS PULLER Respiratory Rate 16 05/17/2019 4:34 PM FOCUS PULLER Oxygen Saturation 99% 05/17/2019 4:34 PM FOCUS PULLER Inhaled Oxygen Concentration - - Weight 90.5 kg (199 lb 9.6 oz) 05/17/2019 4:34 P M FOCUS PULLER Height 160 cm (5' 3) 05/17/2019 4:34 PM FOCUS PULLER Body Mass Index 35.36 05/17/2019 4:34 PM FOCUS PULLER Plan of Treatment Health Maintenance Due Date Last Done Comments HIV SCREENING 2000 HEPATITIS C SCREENING 10/30/2003 DTAP/TDAP/TD VACCINES (1 - Tdap) 2004 HEPATITIS B VACCINE (1 of 3 - 19+ 3-dose series) 2004 PNEUMOCOCCAL VACCINE (1 of 2 - PCV) 2004 Cervical Cancer Screening 2006 PAP SMEAR 2006 HPV VACCINE (1 - 3-dose SCDM series) 2012 PAP with HPV 11/04/2015 DEPRESSION SCREENING 05/03/2024 COVID-19 VACCINE (1 - 2024-2 6 season) 2025 INFLUENZA VACCINE (#1) 2025 ZOSTER [...] / Payer (Ef fective for All Dates) Name:DelmarosmaniaraNeelam Member ID:Not on file Relation to Subscriber:Not on file Name:GALAraNEELAM Subscriber ID:Not on file (Home) Address: [address] [place] [id number] Payer ID:Not on file Group ID:Not on file Type:Self Pay Address: [facility] Care Teams Community Organization Aide Relationship Specialty Start Date End Date Vaibhav Meyrs MD [address] [place] [address] PCP - General Family Medicine 12/01/17
--- OUTSIDE RECORDS SUMMARY | 2025-03-28 01:26 | XMS_ITS | Clinical Summary ---
Author Organization [facility] Virtual Care Address [address] [place] [phone] Phone Care Team Providers Care Physics Technical Officer Name Role Phone Vaibhav Myers MD Primary Care Provider [phone] Allergies Active Allergy Reactions Criticality Noted Date Comments Buspirone Other (See comments) High 02/16/2025 Modafinil Unknown High 02/16/2025 Morphine Anxiety Low 02/16/2025 Paroxetine Unknown 12/26/2020 Medications ALPRAZolam (XANAX) 0.5 mg tablet 01/07/2021 Active cetirizine HCl (ZYRTEC ORAL) Active ibuprofen 200 mg tab/cap Take by mouth Active MULTIVITAMIN ORAL Take 1 tablet by mouth 09/30/2019 Active methylphenidate HCl (RITALIN) 20 mg tablet 2 (two) times a day 09/28/2024 Active Active Problems No known active problems Encounters Date Type Department Care Team Description 03/08/2025 6:30 PM FISHER SPEAR Office Visit [facility] [address] [place] [address] Brii Sutton PA Acute otalgia, left (Primary Dx) 02/18/2025 11:30 AM CDT Office Visit [facility] [address] [place] [address] Megan Ramos NP Sore throat (Primary Dx); Otalgia of left ear; Acute non-recurrent maxillary sinusitis; Pharyngitis due to other organism; Dysfunction of left eustachian tube from Last 3 Months Surgical History Surgery Date Site/Laterality Comments TUBAL LIGATION CHOLECYSTECTOMY Medical History Medical History Date Comments Anxiety Family History Medical History Relation Name Comments Alcohol abuse Father Diabetes Maternal Grandfather Diabetes Maternal Grandmother Heart disease Mother Relation Name Status Comments Father Alive Maternal Grandfather Maternal Grandmother Mother Social History Tobacco Use Types Packs/Day Years Used Date Smoking Tobacco: Every Day Cigarettes 1 15 Smokeless Tobacco: Current Tobacco Cessation:Ready to Q uit: No Comments No Sex and Gender Information Value Date Recorded Sex Assigned at Not on file Legal Sex Female 6:24 AM CDT Gender Identity Not on file Sexual Orientation Not on file Last Filed Vital Signs Vital Sign Reading Time Taken Comments Blood Pressure 134/88 03/08/2025 6:31 PM FISHER SPEAR Pulse 87 03/08/2025 6:31 PM FISHER SPEAR Temperature 36.3 C (97.4 F) 03/08/2025 6:31 PM FISHER SPEAR Respiratory Rate 17 03/08/2025 6:31 PM FISHER SPEAR Oxygen Saturation 98% 03/08/2025 6:31 PM FISHER SPEAR Inhaled Oxygen Concentration - - Weight 91.6 kg (202 lb) 03/08/2025 6:31 PM FISHER SPEAR Height 162.6 cm (5' 4) 03/08/2025 6:31 PM FISHER SPEAR Body Mass Index 34.67 03/08/2025 6:31 PM FISHER SPEAR Plan of Treatment Health Maintenance Due Date Last Done Comments Cervical Cancer Screening 1985 Depression Screening 1985 Hepatitis C Screening 1985 DTaP/Tdap/Td Vaccine (1 - Tdap) 1996 Varicella Vaccines (1 of 2 - 13+ 2-dose series) 1998 Hepatitis B Screening 11/04/2003 Regular Well Visit/Exam 18-64 11/04/2003 Pneumococcal vaccine <65 (1 of 2 - PCV) 2004 HPV Vaccines (1 - 3-dose SCDM series) 2012 Covid-19 Vaccine (2 - 2024- season) 01/01/202501/2021 Influenza Vaccine (#1) 2025 Procedures Procedure Name Priority Date/Time Associated Diagnosis Comments POCT RAPID STREP Routine 02/18/2025 11:5 8 AM CDT Sore throat from Last 3 Months Results * POCT rapid strep A (02/18/2025 11:58 AM CDT) Rapid Strep A, POC Negative Negative Swab 02/18/2025 11:5 8 AM CDT Megan Ramos STUDENT AFFAIRS VICE PRESIDENT POINT OF CARE TEST ORDERAB LES Final Result from Last 3 Months Insurance [employer] ACCESS CHOICE Care Teams Physics Technical Officer Relationship Specialty Start Date End Date Vaibhav Myers MD PCP - General Family Medicine 12/25/20
--- NOTE | 2025-03-28 09:32 | PM.IMHP ---
H&P: HPI History of Present Illness Date/Time: 03/28/25 09:32 Chief Complaint: Heavy menses Narrative: 39 y/o with heavy menses lasting 7 days each, with cramping and clotting. She has had a tubal ligation. Ultrasound exam was essentially negative. She is interested in endometrial ablation as a next step to manage her menses. Review of Systems Review of Systems: All systems reviewed & are unremarkable except as noted in HPI and below PMFSH Past Medical History Medical History Otitis media Cerumen impaction BMI 34.0-34.9,adult BMI 33.0-33.9,adult Primary narcolepsy without cataplexy Sleep paralysis Weight decrease Anxiety Panic disorder Bipolar 1 disorder Surgical History Surgical History History of loop electrosurgical excision procedure (LEEP) History of lithotripsy Hx laparoscopic cholecystectomy History of tubal ligation Family History Family History Mother Family history of multiple sclerosis Asthma Acute myocardial infarction Father Hypertension Grandparent Diabetes mellitus Depression Sibling Thyroid activity decreased Depression Mother Depression Heart problem Father Heart problem Depression Hypertension Alcoholism Cerebrovascular accident Sibling Depression Other Family history of malignant neoplasm of thyroid Social History Social History Smoking packs per day: 1 Smoking cigarettes per day: 20.0 Years smoked: 22 Smoking pack-years: 22.00 Smoking status: Current every day smoker Second hand tobacco smoke exposure: No Alcohol intake: current Substance use: never Substance use type: does not use Lack of Transportation: No Lack of Food: Never True Current Housing: I Have Housing Concerned About Future Housing: No Difficulty Paying Gas/Electric Bills: No Difficulty Paying for Meds: No Currently Unemployed: No Education: High School Diploma/GED Difficulty w/ Childcare or Family Care: No Living arrangements: with family Occupation/Education: 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 Gender identity (if verbalized by the patient): Female Spiritual care concerns: No Meds Home Medications and Allergies Home Medications ?Medication ?Instructions ?Recorded ?Confirmed ?Type alprazolam 0.5 mg tablet 0.5 mg PO TID 09/30/19 03/20/25 History multivit with minerals-iron 18 1 tablet PO DAILY 09/30/19 03/20/25 History mg-folic ac 400 mcg-vit K 25 mcg tablet (Adults Multivitamin) methylphenidate HCl 20 mg tablet 20 mg PO BID 09/28/24 03/20/25 History albuterol sulfate 90 mcg/actuation 2 inh inhalation Q4H PRN shortness 02/26/25 03/20/25 Rx aerosol inhaler (Ventolin HFA) of breath or wheezing #6.7 grams cetirizine 10 mg tablet (24Hour 10 mg PO DAILY 03/20/25 03/20/25 History Allergy) Allergies Allergy/AdvReac Type Severity Reaction Status Date / Time buspirone AdvReac Intermediate Agitated Verified 03/20/25 13:05 modafinil AdvReac Intermediate Unknown Verified 03/20/25 13:05 paroxetine (From Paxil) AdvReac Intermediate Unknown Verified 03/20/25 13:05 morphine AdvReac Anxiety Verified 03/20/25 13:05 Exam Const: Orientation/consciousness: patient oriented x3 Other: Well-developed, well-nourished female in no acute distress. Neck: Thyroid: thyroid normal Lymphatic: no lymphadenopathy noted (in neck, axilla or inguinal nodes) Resp: Effort & Inspection: normal respiratory effort Auscultation: clear to auscultation bilaterally Cardio: Rate: regular rate Rhythm: regular rhythm Heart sounds: S1 normal heart sound present and S2 normal heart sound present GI: Other: ABD: Soft, nontender, nondistended. No guarding or rebound tenderness. No hepatosplenomegaly. : General: Yes no CVA tenderness Other: External genitalia: normal female hair distribution, without lesion. Urethral meatus: no lesion, non prolapsed. Bladder: no mass, nontender Vagina: well-estrogenized, without lesion or discharge. No cystocele or rectocele. Cervix: no lesion or discharge. Uterus: small, anteverted, freely mobile, nontender Adnexa: no mass or tenderness. Anus/perineum: no lesions, nontender Back/Spine/Pelvis: Back: no CVA tenderness Skin: General skin exam: normal color and no rashes or lesions noted Neuro: General: patient oriented x3 Extrem: Other: Extremities: nontender with no edema Psych: Mental Status: mental status grossly normal Affect: normal affect Assessment and Plan Assessment and plan (1) Menometrorrhagia: Code(s): N92.1 - Excessive and frequent menstruation with irregular cycle Status: Acute Assessment and Plan: A: Menometrorrhagia. P: We have reviewed medical as well as surgical options for treatment. She prefers the latter. Specifically, I have offered her a hysteroscopy with dilation and sharp curettage and endometrial ablation. She understands risks of surgery to include risks of anesthesia, risks of pain, infection, bleeding, blood products, thromboembolic phenomena and damage to adjacent structures such as bowel, bladder, ureters, blood vessels and nerves. She understands all these risks and elects to proceed with surgery.
[2025-03-28] MEDS: ACETAMINOPHEN 500 MG TABLET 1000 MG PO (11:50)
[2025-03-28] MEDS: LACTATED RINGERS 1,000 ML 30 ML IV CONT ×2 (12:00→16:17)
--- NOTE | 2025-03-28 13:00 | WPDHPUPDATE1 ---
History and Physical Update Update Date/Time: 03/28/25 13:00 History and Physical has been reviewed, including an updated exam of the patient. There are NO changes in the patient's condition. Risks, benefits, and alternatives have been discussed and questions answered. Patient agrees to proceed with procedure.
--- NOTE | 2025-03-28 13:20 | WPDANESEPPF ---
Anes - Initial Pre Proc Eval Procedure: Operation Date: 03/28/25 13:15 Proposed Procedures p Hysteroscopy Dilation and Curettage with Christelle Endometrial Ablation - Brandyn Glass MD Date/Time: 03/28/25 13:20 Surgeon: Brandyn Glass MD Pre Op Diagnosis: menometrorrhagia Patient Data Age: 39 Gender: F Height: 1.6 m Weight: 90.75 kg Last Vital Signs Temp 36.7 C 03/28/25 11:30 Pulse 92 03/28/25 11:30 BP 128/87 03/28/25 11:30 Pulse Ox 99 03/28/25 11:30 O2 Del Method Room Air 03/28/25 11:30 Allergies Allergy/AdvReac Type Severity Reaction Status Date / Time buspirone AdvReac Intermediate Agitated Verified 03/28/25 11:40 modafinil AdvReac Intermediate Unknown Verified 03/28/25 11:40 paroxetine (From Paxil) AdvReac Intermediate Unknown Verified 03/28/25 11:40 morphine AdvReac Anxiety Verified 03/28/25 11:40 Home Medications ?Medication ?Instructions ?Recorded ?Confirmed ?Type alprazolam 0.5 mg tablet 0.5 mg PO TID 09/30/19 03/20/25 History multivit with minerals-iron 18 1 tablet PO DAILY 09/30/19 03/20/25 History mg-folic ac 400 mcg-vit K 25 mcg tablet (Adults Multivitamin) methylphenidate HCl 20 mg tablet 20 mg PO BID 09/28/24 03/20/25 History albuterol sulfate 90 mcg/actuation 2 inh inhalation Q4H PRN shortness 02/26/25 03/20/25 Rx aerosol inhaler (Ventolin HFA) of breath or wheezing #6.7 grams cetirizine 10 mg tablet (24Hour 10 mg PO DAILY 03/20/25 03/20/25 History Allergy) Patient hx anesthesia problems: none Family hx anesthesia problems: none Results Review: All pre-operative results and documents have been reviewed as part of the pre-operative evaluation. [facility] Past Medical History Medical History Otitis media Cerumen impaction BMI 34.0-34.9,adult BMI 33.0-33.9,adult Primary narcolepsy without cataplexy Sleep paralysis Weight decrease Anxiety Panic disorder Bipolar 1 disorder Surgical History Surgical History History of loop electrosurgical excision procedure (LEEP) History of lithotripsy Hx laparoscopic cholecystectomy History of tubal ligation Family History Family History Mother Family history of multiple sclerosis Asthma Acute myocardial infarction Father Hypertension Grandparent Diabetes mellitus Depression Sibling Thyroid activity decreased Depression Mother Depression Heart problem Father Heart problem Depression Hypertension Alcoholism Cerebrovascular accident Sibling Depression Other Family history of malignant neoplasm of thyroid Social History Social History Smoking packs per day: 1 Smoking cigarettes per day: 20.0 Years smoked: 22 Smoking pack-years: 22.00 Smoking status: Current every day smoker Second hand tobacco smoke exposure: No Alcohol intake: current Substance use: never Substance use type: does not use Lack of Transportation: No Lack of Food: Never True Current Housing: I Have Housing Concerned About Future Housing: No Difficulty Paying Gas/Electric Bills: No Difficulty Paying for Meds: No Currently Unemployed: No Education: High School Diploma/GED Difficulty w/ Childcare or Family Care: No Living arrangements: with family Occupation/Education: occupation 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 Informed Consent: The patient's anesthetic plan and its attendant risks and benefits were discussed with the patient/family/POA. Questions were solicited and answers provided to the satisfaction of the patient/family/POA.
[2025-03-28] MEDS: LIDOCAINE 1% LOCAL INJ 10 ML VIAL INFILTRATE (14:05)
--- NOTE | 2025-03-28 14:25 | S_PTH ---
PATIENT: Neelam Jones LOC: [facility] U#:[id number] AGE/SX: 39/F ROOM: RE03/28/[address]: Brandyn Glass MD : 1985 BED: DIS: 03/28/2025 SPEC #: [id number] RECD: 04/02/25 08:20 STATUS: ALDAIR REQ #: [id number] LOCO: 03/28/25 14:[address]: Brandyn Glass DEPT: [facility] Surgical RECD BY: Jennifer Quach ENTERED: 04/02/25 08:20 SP TYPE: Surgical OTHR DR: Vaibhav Myers MD Tissues: A - Endometrial Curettings Procedures: Hematoxylin and Eosin Stain Gross and Microscopic Level 4
--- NOTE | 2025-03-28 14:40 | W.PM.PROC2 ---
Procedure Note - Detailed Date of Procedure 03/28/25 Pre-op Diagnosis Menometrorrhagia Post-op Diagnosis Same Procedure Performed Hysteroscopy Dilation and sharp curettage Endometrial ablation Surgeon Brandyn Glass MD Anesthesia MAC and Local (1% lidocaine) Findings Unremarkable endometrium. Both tubal ostia seen. Description of Procedure The patient was taken to the operating room where she was prepared and draped in the usual sterile fashion in the dorsal lithotomy position. The bladder was drained with a red rubber catheter. A sterile speculum was placed into the vagina. The anterior lip of the cervix was grasped with single-tooth tenaculum. Ten mL of 1% lidocaine was administered in a paracervical block. The cervix was then gently dilated using Hegar dilators until an 8 mm dilator could be passed. Hysteroscopy was performed using sterile saline as a distention medium. Findings are as noted above. Sharp curettage was then performed, and endometrial curettings were collected on a Telfa pad and passed off to be sent to pathology. Finally, the the Christelle device was advanced and endometrial ablation commenced without difficulty. The device was withdrawn and a second look was taken using the hysteroscope. Excellent coverage of the endometrial cavity was noted. The tenaculum was removed. Hemostasis was excellent. Sponge, lap, needle and instrument counts were correct. The patient was awakened and taken to the recovery room in stable condition. I was present and scrubbed through the entire procedure. Estimated Blood Loss 5 Drains No Packing No Pathology Yes (Endometrial curettings) Complications None Condition Stable Disposition PACU [facility] Billing Surgery - Charge Forward: Surgery Billing
[2025-03-28 15:15] LABS: BEDSIDEPREGUCG Negative (Negative)
[2025-03-28] MEDS: ONDANSETRON INJ 4 MG/2 ML VIAL IV PUSH (15:40)
[2025-03-28] MEDS: KETOROLAC 30 MG/ML VIAL (*BKC) IV PUSH (15:40)
[2025-03-28] MEDS: fentaNYL CITRATE INJ (*CRX) 100 MCG/2 ML VIAL 25 MCG IV PUSH ×2 (15:48→16:33)
[2025-03-28] MEDS: SCOPOLAMINE 1 MG PATCH 1 PATCH TRANSDERM (16:16)
[2025-03-28] MEDS: oxyCODONE HCL (*CRX) 5 MG TAB IR PO (16:17)
== END 2025-03-28 17:05 | disposition home or self-care (01) ==
PROVIDERS: PCP Family Medicine; Visit Provider Obstetrics & Gynecology
PROC: 0U5B8ZZ Destruction of Endometrium, Via Natural or Artificial Opening Endoscopic (ICD-10-PCS; CPT 58563; principal; 2025-03-28 13:15)
DX: N92.1 Excessive and frequent menstruation with irregular cycle (principal); F17.210 Nicotine dependence, cigarettes, uncomplicated; E66.9 Obesity, unspecified; Z68.35 Body mass index [BMI] 35.0-35.9, adult
CPT/HCPCS: 58563; 88305; A9270; J1200; J1885; J2003; J2250; J2405; J2704; J3010; J7120